=== PATIENT | female | born 1990 | race Caucasian/White ===

== ENCOUNTER 2018-07-26 13:33 | Emergency (ER) | payer OTHER ==
--- NOTE | 2018-07-26 13:49 | EDM.PDOC ---
ED HPI GENERAL MEDICAL PROBLEM - General Chief Complaint: Laceration Stated Complaint: GOT HURT AT WORK AND MY NEED STITCHES Time Seen by Provider: 07/26/18 13:37 - History of Present Illness INITIAL COMMENTS - FREE TEXT/NARRATIVE: HISTORY AND PHYSICAL: History of present illness: The patient is a 27-year-old female who presented to the ER with a 2.0 cm laceration of the dorsum of the right thumb. She reports she was cleaning at work and cut it on a glass cup. She reports it took compression for a while before it stopped bleeding. It is not currently bleeding. She reports normal movement and feeling in all her fingers. Patient is unsure of tetanus status. [] Review of systems: As per history of present illness and below otherwise all systems reviewed and negative. Past medical history: As per history of present illness and as reviewed below otherwise noncontributory. Surgical history: As per history of present illness and as reviewed below otherwise noncontributory. Social history: No reported history of drug or alcohol abuse. Family history: As per history of present illness and as reviewed below otherwise noncontributory. Physical exam: HEENT: Atraumatic, normocephalic, pupils reactive, negative for conjunctival pallor or scleral icterus, mucous membranes moist, throat clear, neck supple, nontender, trachea midline. Lungs: Clear to auscultation, breath sounds equal bilaterally, chest nontender. Heart: S1S2, regular, negative for clicks, rubs, or JVD. Abdomen: Soft, nondistended, nontender. Negative for masses or hepatosplenomegaly. Negative for costovertebral tenderness. Pelvis: Stable nontender. Genitourinary: Deferred. Rectal: Deferred. Extremities: Atraumatic, negative for cords or calf pain. Neurovascular unremarkable. Right thumb- 2 cm dorsal laceration, full ROM, normal sensation, no active bleeding. Neuro: Awake, alert, oriented. Cranial nerves II through XII unremarkable. Cerebellum unremarkable. Motor and sensory unremarkable throughout. Exam nonfocal. Impression: [laceration right dorsum of thumb] Plan: Area was cleaned and draped in sterile fashion. Local anesthetic was used with 3 mL of 1% lidocaine. The patient's laceration was sutured using 4-0 Ethilon sutures. The laceration required 5 sutures. Patient tolerated procedure well. Patient had full motion and was neurovascularly intact pre and post procedure. Minimal blood loss, no complications. Patient also received tetanus vaccination.] Definitive disposition and diagnosis as appropriate pending reevaluation and review of above. abodminal cramping Pain Score (Numeric/FACES): 6 - Related Data Allergies Allergy/AdvReac Type Severity Reaction Status Date / Time No Known Allergies Allergy Verified 07/26/18 13:39 Home Meds: Home Meds . [No Known Home Meds] 07/26/18 [History] Past Medical History - Past Health History Medical/Surgical History: Denies Medical/Surgical History - Past Surgical History Female Surgical History: Reports: Section Social & Family History - Family History Endocrine/Metabolic: Reports: Diabetes, Type I - Tobacco Use Smoking Status *Q: Never Smoker Second Hand Smoke Exposure: No - Caffeine Use Caffeine Use: Reports: None - Recreational Drug Use Recreational Drug Use: No ED ROS GENERAL - Review of Systems Review Of Systems: See Below (See dictation) ED EXAM, SKIN/RASH Exam: See Below (See dictation) Course - Vital Signs Last Recorded V/S: Last Vital Signs Temp 97.1 F 07/26/18 13:36 Pulse 99 07/26/18 13:36 Resp 16 07/26/18 13:36 BP 150/80 H 07/26/18 13:36 Pulse Ox 97 07/26/18 13:36 - Orders/Labs/Meds Meds: Medications Discontinued Medications Generic Name Dose Route Start Last Admin Trade Name Isidroq PRN Reason Stop Dose Admin Lidocaine HCl 5 ml 07/26/18 13:50 Xylocaine-Mpf 1% INJECT 07/26/18 13:51 ONETIME ONE Departure - Departure Time of Disposition: 14:27 Disposition: Home, Self-Care 01 Condition: Good Clinical Impression: Laceration - Discharge Information *PRESCRIPTION DRUG MONITORING PROGRAM REVIEWED*: No *COPY OF PRESCRIPTION DRUG MONITORING REPORT IN PATIENT DORINA: No Instructions: Laceration Care, Adult, [id number], Stitches, [place], or Adhesive Wound Closure, [id number] Referrals: PCP,None [Primary Care Provider] - Forms: ED Department Discharge Additional Instructions: My general discharge The following information is given to patients seen in the emergency department who are being discharged to home. This information is to outline your options for follow-up care. We provide all patients seen in our emergency department with a follow-up referral. The need for follow-up, as well as the timing and circumstances, are variable depending upon the specifics of your emergency department visit. If you don't have a primary care physician on staff, we will provide you with a referral. We always advise you to contact your personal physician following an emergency department visit to inform them of the circumstance of the visit and for follow-up with them and/or the need for any referrals to a consulting specialist. The emergency department will also refer you to a specialist when appropriate. This referral assures that you have the opportunity for follow-up care with a specialist. All of these measure are taken in an effort to provide you with optimal care, which includes your follow-up. Under all circumstances we always encourage you to contact your private physician who remains a resource for coordinating your care. When calling for follow-up care, please make the office aware that this follow-up is from your recent emergency room visit. If for any reason you are refused follow-up, please contact the [facility] Emergency Department at and asked to speak to the emergency department charge nurse. My Primary Care [facility] [address] [place] [id number] Please return in 7-10 days for suture removal. If any signs of infection such as redness around the site, warmth, or drainage from the wound please seek medical attention. Keep area clean and dry.
[2018-07-26] MEDS ORDERED: Diphtheria,Pertussis(Acell),Tetanus Vaccine 0.5 ML Syringe IM ONE (14:35)
== END 2018-07-26 14:45 | disposition home or self-care (01) ==
LOC: MW.ED 13:33
DX: S61.011A Laceration without foreign body of right thumb without damage to nail, initial encounter (principal); Z23 Encounter for immunization; W25.XXXA Contact with sharp glass, initial encounter; Y93.G1 Activity, food preparation and clean up; Y99.0 Civilian activity done for income or pay
CPT/HCPCS: 90471; 90715; 99282-25

== ENCOUNTER 2021-01-13 04:58 | Inpatient (IN) | payer MEDICAID ==
[2021-01-13] MEDS ORDERED: Citric Acid/Sodium Citrate Solution 30 ML Cup PO ONE (05:08)
[2021-01-13] MEDS ORDERED: Sodium Chloride 0.9% 10 ML SDV IV PRN (05:08)
[2021-01-13] MEDS ORDERED: Sodium Chloride 0.9% 10 ML Syringe FLUSH PRN (05:08)
[2021-01-13] MEDS ORDERED: Sodium Chloride 0.9% 2.5 ML Syringe FLUSH PRN (05:08)
[2021-01-13] MEDS ORDERED: ceFAZolin 2 GM in Premix Bag 1 BAG IV ONE (05:08)
[2021-01-13] MEDS ORDERED: Oxytocin/0.9 % Sodium Chloride 30 UNIT/500 ML BAG IV SCH (05:15)
[2021-01-13] MEDS: Lactated Ringers 1,000 ML IV SCH ×2 (05:25→06:23)
[2021-01-13] MEDS ORDERED: fentaNYL 100 MCG/2 ML SDV ONE (07:03)
[2021-01-13] MEDS ORDERED: Ondansetron 4 MG/2 ML SDV ONE (07:04)
[2021-01-13] MEDS ORDERED: Morphine PF 10 MG/10 ML SDV ONE (07:04)
[2021-01-13] MEDS ORDERED: Phenylephrine 1% 10 MG/ML SDV ONE (07:04)
[2021-01-13] MEDS ORDERED: Oxytocin 10 Units/1 ML SDV ONE ×2 (07:04→08:46)
--- NOTE | 2021-01-13 07:19 | PCM.PREANE ---
Preanesthetic Assessment - Anesthesia/Transfusion/Family Hx Anesthesia History: Prior Anesthesia Without Reaction Family History of Anesthesia Reaction: No Transfusion History: No Prior Transfusion(s) - Review of Systems General: No Symptoms Pulmonary: No Symptoms Cardiovascular: No Symptoms Gastrointestinal: No Symptoms Neurological: No Symptoms Other: Reports: None - Physical Assessment NPO Status Date: 01/13/21 NPO Status Time: 04:00 Height: 1.6 m Weight: 112.037 kg ASA Class: 2 Mental Status: Alert & Oriented x3 Airway Class: Mallampati = 2 Dentition: Reports: Broken Tooth/Teeth (center left and right upper) Thyro-Mental Finger Breadths: 3 Mouth Opening Finger Breadths: 3 ROM/Head Extension: Full Lungs: Clear to Auscultation, Normal Respiratory Effort Cardiovascular: Regular Rate, Regular Rhythm - Lab Values: Laboratory Last Values WBC 9.31 K/uL (4.0-11.0) 01/13/21 05:25 RBC 4.24 M/uL (4.30-5.90) L 01/13/21 05:25 Hgb 11.3 g/dL (12.0-16.0) L 01/13/21 05:25 Hct 35.0 % (36.0-46.0) L 01/13/21 05:25 MCV 82.5 fL (80.0-98.0) 01/13/21 05:25 MCH 26.7 pg (27.0-32.0) L 01/13/21 05:25 MCHC 32.3 g/dL (31.0-37.0) 01/13/21 05:25 RDW Std Deviation 43.4 fl (28.0-62.0) 01/13/21 05:25 RDW Coeff of Kadi 15 % (11.0-15.0) 01/13/21 05:25 Plt Count 242 K/uL (150-400) 01/13/21 05:25 MPV 10.60 fL (7.40-12.00) 01/13/21 05:25 Nucleated RBC % 0.0 /100WBC 01/13/21 05:25 Nucleated RBCs # 0 K/uL 01/13/21 05:25 Blood Type A POSITIVE 01/13/21 05:25 Antibody Screen NEGATIVE 01/13/21 05:25 - Allergies Allergies/Adverse Reactions: Allergies Allergy/AdvReac Type Severity Reaction Status Date / Time No Known Allergies Allergy Verified 01/07/21 09:32 - Acknowledgements Anesthesia Type Planned: Spinal (The patient understands and accepts anesthetic risks and benefits of spinal anesthesia including failed spinal requiring conversion to general anesthesia. She understands and accepts the anesthetic risks and benefits of anesthesia. All questions answered. Consent signed. ) Pt an Appropriate Candidate for the Planned Anesthesia: Yes Alternatives and Risks of Anesthesia Discussed w Pt/Guardian: Yes Pt/Guardian Understands and Agrees with Anesthesia Plan: Yes PreAnesthesia Questionnaire - Past Health History Medical/Surgical History: Denies Medical/Surgical History HEENT History: Reports: None Cardiovascular History: Reports: None Respiratory History: Reports: Asthma (used her inhaler last year "December 2019".) Other Respiratory History: rarely uses inhaler Gastrointestinal History: Reports: Other (See Below) Other Gastrointestinal History: occasional heartburn during -none now Genitourinary History: Reports: None 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: Musculoskeletal History: Reports: None Neurological History: Reports: None Psychiatric History: Reports: None Endocrine/Metabolic History: Reports: Obesity/BMI 30+ (BMI 43) Hematologic History: Reports: None - Infectious Disease History Infectious Disease History: Reports: None - Past Surgical History Head Surgeries/Procedures: Reports: None Female Surgical History: Reports: Section (one.) - SUBSTANCE USE Tobacco Use Status *Q: Never Tobacco User Second Hand Smoke Exposure: No Recreational Drug Use History: No - HOME MEDS Home Medications: Home Meds Albuterol [Ventolin HFA] 1 dose IN Q4HR #1 inhaler 09/04/18 [Rx] Pnv No.95/Ferrous Fum/Folic AC [ Vitamin Tablet] 1 tab PO DAILY 01/07/21 [History] - CURRENT (IN HOUSE) MEDS Current Meds: Current Medications Oxytocin/Sodium Chloride (Oxytocin 30 Unit/500 Ml-Ns) 30 unit in 500 mls @ 250 mls/hr IV TITRATE MITCH Lactated Ringer's (Ringers, Lactated) 1,000 mls @ 500 mls/hr IV BOLUS MITCH Last Admin: 01/13/21 06:23 Dose: 999 mls/hr Documented by: Sodium Chloride (Sodium Chloride 0.9% 10 Ml Syringe) 10 ml FLUSH ASDIRECTED PRN PRN Reason: Keep Vein Open Sodium Chloride (Sodium Chloride 0.9% 2.5 Ml Syringe) 2.5 ml FLUSH ASDIRECTED PRN PRN Reason: Keep Vein Open Sodium Chloride (Sodium Chloride 0.9% 10 Ml Sdv) 10 ml IV ASDIRECTED PRN PRN Reason: IV Use Discontinued Medications Citric Acid/Sodium Citrate (Citric Acid/Sodium Citrate Solution 30 Ml Cup) 30 ml PO ONETIME ONE Stop: 01/13/21 05:09 Fentanyl (Fentanyl 100 Mcg/2 Ml Sdv) Confirm Administered Dose 100 mcg .ROUTE .STK-MED ONE Stop: 01/13/21 07:04 Cefazolin Sodium/Dextrose 2 gm (/ Premix) 50 mls @ 100 mls/hr IV ONETIME ONE Stop: 01/13/21 05:37 Morphine Sulfate (Morphine Pf 10 Mg/10 Ml Sdv) Confirm Administered Dose 10 mg .ROUTE .STK-MED ONE Stop: 01/13/21 07:05 Ondansetron HCl (Ondansetron 4 Mg/2 Ml Sdv) Confirm Administered Dose 4 mg .ROUTE .STK-MED ONE Stop: 01/13/21 07:05 Oxytocin (Oxytocin 10 Units/1 Ml Sdv) Confirm Administered Dose 20 unit .ROUTE .STK-MED ONE Stop: 01/13/21 07:05 Phenylephrine HCl (Phenylephrine 1% 10 Mg/Ml Sdv) Confirm Administered Dose 10 mg .ROUTE .STK-MED ONE Stop: 01/13/21 07:05
[2021-01-13] MEDS ORDERED: ceFAZolin 1 GM Vial ONE (07:28)
[2021-01-13] MEDS ORDERED: Sodium Chloride 0.9% 20 ML ONE (07:28)
[2021-01-13] MEDS ORDERED: Nalbuphine 10 MG/1 ML Vial IVPUSH PRN (08:36)
[2021-01-13] MEDS ORDERED: Naloxone 0.4 MG/ML Syringe IVPUSH PRN (08:36)
[2021-01-13] MEDS ORDERED: Acetaminophen/oxyCODONE 325-5 MG Tab PO PRN ×2 (09:00→10:27)
[2021-01-13] MEDS ORDERED: Acetaminophen/HYDROcodone 325-5 MG Tab PO PRN (09:00)
[2021-01-13] MEDS ORDERED: Midazolam 1 MG/ML 2 ML SDV ONE (09:20)
[2021-01-13] MEDS ORDERED: Bisacodyl 10 MG Supp RECTAL PRN (10:27)
[2021-01-13] MEDS ORDERED: Oxytocin 10 Units/1 ML SDV IM PRN (10:27)
[2021-01-13] MEDS ORDERED: diphenhydrAMINE 50 MG/ML SDV IVPUSH PRN (10:27)
[2021-01-13] MEDS ORDERED: Lanolin 100% Cream 7 GM Tube TOP PRN (10:27)
[2021-01-13] MEDS ORDERED: Ondansetron 4 MG/2 ML SDV IVPUSH PRN (10:27)
[2021-01-13] MEDS ORDERED: Methylergonovine 0.2 MG/1 ML Amp IM PRN (10:27)
[2021-01-13] MEDS ORDERED: Misoprostol 200 MCG Tab RECTAL PRN (10:27)
[2021-01-13] MEDS ORDERED: Tranexamic Acid 1,000 MG in Sodium Chloride 0.9% 100 ML IV PRN (10:27)
[2021-01-13] MEDS ORDERED: Oxytocin/Lactated Ringers 30 UNIT/500 ML BAG IV SCH (10:30)
[2021-01-13] MEDS ORDERED: Lactated Ringers 1,000 ML IV SCH (10:30)
[2021-01-13] MEDS: Ketorolac 30 MG/ML SDV IVPUSH SCH ×2 (10:58→16:35)
--- NOTE | 2021-01-13 11:21 | PCM.POSTAN ---
POST ANESTHESIA ASSESSMENT - MENTAL STATUS Mental Status: Alert, Oriented - RESPIRATORY Respiratory Status: Respiratory Rate WNL, Airway Patent, O2 Saturation Stable - CARDIOVASCULAR CV Status: Pulse Rate WNL, Blood Pressure Stable - GASTROINTESTINAL GI Status: No Symptoms - POST OP HYDRATION Hydration Status: Adequate & Stable
--- NOTE | 2021-01-13 14:35 | OR ---
DATE OF PROCEDURE: 01/13/2021 SURGEON: EUGENIO FRANCIS PREOPERATIVE DIAGNOSIS: A 30-year-old, G2, P 1-0-0-1, at 39 weeks and 2 days, for repeat section. POSTOPERATIVE DIAGNOSIS: A 30-year-old, G2, P 1-0-0-1, at 39 weeks and 2 days, for repeat section. PROCEDURE: Repeat UPPER segment section and lysis of extensive adhesions. URINE OUTPUT: 100. ESTIMATED BLOOD LOSS: 1000. IV FLUIDS: 3100. ANESTHESIA: Spinal. COMPLICATIONS: None. NOTES AND FINDINGS: A live male delivered at 9:03 a.m. score is 8 and 9. Weight is 3960 g. Extensive lower segment uterine adhesion with the rectus muscle completely plastered on the lower uterine segment. BRIEF HISTORY ABOUT THE PATIENT: A 30-year-old, G2, P 1-0-0-1, at 39 weeks and 2 days, who was for a repeat section. She had a previous history of , which she said was complicated with a wound infection afterward. She declined a and desired a repeat section. She was explained the risks, benefits, and alternatives, and she desired to proceed. DESCRIPTION OF PROCEDURE: The patient was taken to the operating room where spinal anesthesia was performed without difficulty. She was prepared and draped in the dorsal supine position with a leftward tilt. A Pfannenstiel skin incision was made 1 cm from the previous incision, which was about 3 to 4 cm from the pubic symphysis. The incision was carried down to the fascia with the Bovie. The fascia was incised and extended laterally. The fascia was from the rectus muscles superiorly and inferiorly. The rectus muscle was noted to be adhered to the anterior uterine segment . With gentle dissection and sharp and blunt dissection, the area above the rectus adhered to the segment of the uterus was then freed in a stepwise fashion. 100 mL of sterile milk backed filled into the bladder to help to demarcate the bladder. Then, with some increased visibility of the anterior uterus, an incision was made, which was extended with the bandit scissors/ and the was in cephalic position, was brought to the level of the incision. With fundal pressure, was delivered. The cord was clamped and cut. was handed over to the awaiting nursery nurse. The cord blood gases were obtained. The placenta was delivered without any difficulty. Then, the incision was closed in two layers, first layer with 0 Vicryl, second layer with 0 Monocryl. The areas around the anterior uterine wall were noted to be bleeding and multiple [id number] sutures were placed. The adnexa were then inspected and there was some bleeding close to the round ligament on the left, which was controlled with interrupted [id number] sutures. The incision was then inspected and noted to be about 5 cm from the fundus, hence was called upper uterine transverse incision. Interceed was placed on the uterine incision. The Abdon retractor was removed and the incision was inspected again, it was noted to be hemostatic. The gutters were cleaned. The rectus muscle that was dissected off the uterus was then apposed with [id number] sutures for hemostasis . The fascia was closed in a continuous fashion. Then, the subcutaneous fat was apposed in two layers with plain gut. Skin was closed with 3-0 Monocryl on a Jay needle. The MISBAH dressing was placed on top of the incision. All instrument and pad counts were correct x2. YARI / JOHN /[id number] URSULA
--- NOTE | 2021-01-13 17:18 | PCM.OPNOTE ---
- General Post-Op/Procedure Note Date of Surgery/Procedure: 01/13/21 Operative Procedure(s): Repeat UPPER segment transverse incision Findings: Live male delivered at 903am , 8/9 weight 3960g Extensive adhesion of lower uterine segment to the rectus muscles Interceed placed on uterine incision Pre Op Diagnosis: 30yo @ 39w2d for repeat Post-Op Diagnosis: same Anesthesia Technique: Spinal Primary Surgeon: Art Meza Anesthesia Provider: Shona Mazariegos Fluid Replacement, Intraop: 3,100 Output, Urine Amount: 100 EBL in mLs: 1,000 Complications: None Condition: Good Free Text/Narrative:: Intake & Output 01/13/21 01/13/21 01/13/21 06:59 14:59 22:59 Output Total 100 375 Balance -100 -375
[2021-01-14] MEDS: Ketorolac 30 MG/ML SDV IVPUSH SCH ×3 (07:22→10:30)
[2021-01-14] MEDS: Docusate Sodium 100 MG Cap PO SCH ×3 (07:24→20:58)
--- NOTE | 2021-01-14 07:55 | PCM48HPAN ---
Post Anesthesia Note - EVALUATION WITHIN 48HRS OF ANESTHETIC Vital Signs in Normal Range: Yes Patient Participated in Evaluation: Yes Respiratory Function Stable: Yes Airway Patent: Yes Cardiovascular Function Stable: Yes Hydration Status Stable: Yes Pain Control Satisfactory: Yes Nausea and Vomiting Control Satisfactory: Yes Mental Status Recovered: Yes Vital Signs: Last Vital Signs Temp 36.6 C 01/13/21 16:08 Pulse 90 01/14/21 06:00 Resp 17 01/14/21 06:00 BP 112/58 L 01/13/21 16:08 Pulse Ox 100 01/14/21 06:00 - COMMENTS/OBSERVATIONS Free Text/Narrative:: pt states full sensation in legs bilaterally.
[2021-01-14] MEDS ORDERED: Ibuprofen 800 MG Tab PO PRN (16:30)
[2021-01-14] MEDS: Ferrous Sulfate 325 MG Tab PO SCH (17:34)
[2021-01-14] MEDS: Acetaminophen/oxyCODONE 325-5 MG Tab PO PRN (19:49)
--- NOTE | 2021-01-15 08:56 | PCM.PNPP ---
- General Info Date of Service: 01/15/21 Subjective Update: 30yo P2 s/p Repeat POD2 , she is ambulating , voiding and tolerating regular diet Functional Status: Reports: Pain Controlled, Tolerating Diet, Ambulating, Urinating - Review of Systems General: Reports: No Symptoms HEENT: Reports: No Symptoms Pulmonary: Reports: No Symptoms Cardiovascular: Reports: No Symptoms Gastrointestinal: Reports: No Symptoms Genitourinary: Reports: No Symptoms Musculoskeletal: Reports: No Symptoms - General Info Date of Service: 01/15/21 - Patient Data Vital Signs - Most Recent: Last Vital Signs Temp 37.2 C 01/15/21 08:00 Pulse 74 01/15/21 06:09 Resp 18 01/15/21 08:00 BP 120/62 01/15/21 08:00 Pulse Ox 97 01/15/21 08:00 Weight - Most Recent: 112.037 kg Med Orders - Current: Current Medications Hydrocodone Bitart/Acetaminophen (Acetaminophen/Hydrocodone 325-5 Mg Tab) 2 tab PO Q6H PRN PRN Reason: Pain (moderate 4-6) Bisacodyl (Bisacodyl 10 Mg Supp) 10 mg RECTAL ONETIME PRN PRN Reason: Constipation Diphenhydramine HCl (Diphenhydramine 50 Mg/Ml Sdv) 25 mg IVPUSH Q6H PRN PRN Reason: Itching or Nausea Docusate Sodium (Docusate Sodium 100 Mg Cap) 100 mg PO BID [facility] Last Admin: 01/14/21 20:58 Dose: 100 mg Documented by: Emollient Ointment (Lanolin 100% Cream 7 Gm Tube) 0 gm TOP ASDIRECTED PRN PRN Reason: Sore Nipples Ferrous Sulfate (Ferrous Sulfate 325 Mg Tab) 325 mg PO TIDMEALS [facility] Last Admin: 01/14/21 17:34 Dose: 325 mg Documented by: Oxytocin/Sodium Chloride (Oxytocin 30 Unit/500 Ml-Ns) 30 unit in 500 mls @ 250 mls/hr IV TITRATE [facility] Lactated Ringer's (Ringers, Lactated) 1,000 mls @ 500 mls/hr IV BOLUS [facility] Last Admin: 01/13/21 06:23 Dose: 999 mls/hr Documented by: Lactated Ringer's (Ringers, Lactated) 1,000 mls @ 125 mls/hr IV ASDIRECTED [facility] Last Admin: 01/13/21 15:24 Dose: 125 mls/hr Documented by: Oxytocin/Lactated Ringer's (Pitocin In Lr 30 Units/500 Ml) 30 unit in 500 mls @ 2 mls/hr IV TITRATE MITCH; Protocol Tranexamic Acid 1,000 mg/ (Sodium Chloride) 110 mls @ 660 mls/hr IV ONETIME PRN PRN Reason: Bleeding Ibuprofen (Ibuprofen 800 Mg Tab) 800 mg PO Q8H PRN PRN Reason: mild pain or fever Last Admin: 01/14/21 21:01 Dose: 800 mg Documented by: Methylergonovine Maleate (Methylergonovine 0.2 Mg/1 Ml Amp) 0.2 mg IM ONETIME PRN PRN Reason: Excessive Vaginal Bleeding Misoprostol (Misoprostol 200 Mcg Tab) 1,000 mcg RECTAL ONETIME PRN PRN Reason: excessive bleeding Ondansetron HCl (Ondansetron 4 Mg/2 Ml Sdv) 4 mg IVPUSH Q4H PRN PRN Reason: Nausea/Vomiting Oxycodone/Acetaminophen (Acetaminophen/Oxycodone 325-5 Mg Tab) 1 tab PO ONETIME PRN PRN Reason: Pain (mild 1-3) Oxycodone/Acetaminophen (Acetaminophen/Oxycodone 325-5 Mg Tab) 1 tab PO Q4H PRN PRN Reason: Pain (moderate 4-6) Oxycodone/Acetaminophen (Acetaminophen/Oxycodone 325-5 Mg Tab) 2 tab PO Q4H PRN PRN Reason: Pain (moderate 4-6) Last Admin: 01/14/21 19:49 Dose: 2 tab Documented by: Oxytocin (Oxytocin 10 Units/1 Ml Sdv) 10 unit IM ASDIRECTED PRN PRN Reason: Excessive Vaginal Bleeding Sodium Chloride (Sodium Chloride 0.9% 10 Ml Syringe) 10 ml FLUSH ASDIRECTED PRN PRN Reason: Keep Vein Open Sodium Chloride (Sodium Chloride 0.9% 2.5 Ml Syringe) 2.5 ml FLUSH ASDIRECTED PRN PRN Reason: Keep Vein Open Sodium Chloride (Sodium Chloride 0.9% 10 Ml Sdv) 10 ml IV ASDIRECTED PRN PRN Reason: IV Use Discontinued Medications Cefazolin Sodium (Cefazolin 1 Gm Vial) Confirm Administered Dose 2 gm .ROUTE .[facility]-MED ONE Stop: 01/13/21 07:29 Citric Acid/Sodium Citrate (Citric Acid/Sodium Citrate Solution 30 Ml Cup) 30 ml PO ONETIME ONE Stop: 01/13/21 05:09 Fentanyl (Fentanyl 100 Mcg/2 Ml Sdv) Confirm Administered Dose 100 mcg .ROUTE .STK-MED ONE Stop: 01/13/21 07:04 Cefazolin Sodium/Dextrose 2 gm (/ Premix) 50 mls @ 100 mls/hr IV ONETIME ONE Stop: 01/13/21 05:37 Sodium Chloride (Normal Saline) Confirm Administered Dose 20 mls @ as directed .ROUTE .STK-MED ONE Stop: 01/13/21 07:29 Ketorolac Tromethamine (Ketorolac 30 Mg/Ml Sdv) 30 mg IVPUSH Q6H MITCH Stop: 01/14/21 10:31 Last Admin: 01/14/21 10:30 Dose: 30 mg Documented by: Midazolam HCl (Midazolam 1 Mg/Ml 2 Ml Sdv) Confirm Administered Dose 2 mg .ROUTE .STK-MED ONE Stop: 01/13/21 09:21 Morphine Sulfate (Morphine Pf 10 Mg/10 Ml Sdv) Confirm Administered Dose 10 mg .ROUTE .STK-MED ONE Stop: 01/13/21 07:05 Nalbuphine HCl (Nalbuphine 10 Mg/1 Ml Vial) 2.5 mg IVPUSH Q3H PRN PRN Reason: Pruritis Stop: 01/14/21 08:37 Naloxone HCl (Naloxone 0.4 Mg/Ml Syringe) 0.1 mg IVPUSH ONETIME PRN PRN Reason: Respiratory Depression Stop: 01/14/21 08:37 Ondansetron HCl (Ondansetron 4 Mg/2 Ml Sdv) Confirm Administered Dose 4 mg .ROUTE .STK-MED ONE Stop: 01/13/21 07:05 Oxytocin (Oxytocin 10 Units/1 Ml Sdv) Confirm Administered Dose 20 unit .ROUTE .STK-MED ONE Stop: 01/13/21 07:05 Oxytocin (Oxytocin 10 Units/1 Ml Sdv) Confirm Administered Dose 10 unit .ROUTE .STK-MED ONE Stop: 01/13/21 08:47 Phenylephrine HCl (Phenylephrine 1% 10 Mg/Ml Sdv) Confirm Administered Dose 10 mg .ROUTE .STK-MED ONE Stop: 01/13/21 07:05 - Recovery Exam Fundal Tone: Firm Fundal Level: 1 Fingerbreadths Below Umbilicus Fundal Placement: Midline Lochia Amount: Scant Lochia Color: Rubra/Red Perineum Description: Intact, Minimal Bruising/Swelling Episiotomy/Laceration: None Bladder Status: Voiding Urinary Elimination: Indwelling Catheter - Exam General: Alert HEENT: Pupils Equal Lungs: Clear to Auscultation Cardiovascular: Regular Rate, Regular Rhythm GI/Abdominal Exam: Normal Bowel Sounds Extremities: Normal Inspection Wound/Incisions: Dressing Dry and Intact Neurological: No New Focal Deficit Psy/Mental Status: Alert - Problem List & Annotations (1) delivery delivered SNOMED Code(s): 308484775 Code(s): O82 - ENCOUNTER FOR DELIVERY WITHOUT INDICATION Status: Acute Current Visit: Yes - Problem List Review Problem List Initiated/Reviewed/Updated: Yes - My Orders Last 24 Hours: My Active Orders 01/14/21 16:30 Ibuprofen [Motrin] 800 mg PO Q8H PRN - Assessment Assessment:: 30yo P2 s/p repeat POD 2 transferred to [place] for intestinal obstruction Breastmilk pumping Post -op aneamia - Plan Plan:: care Pain control Discharge home today Iron tid for aneamia Recommend incentive spirometry
[2021-01-15] MEDS: Docusate Sodium 100 MG Cap PO SCH (09:01)
[2021-01-15] MEDS: Acetaminophen/oxyCODONE 325-5 MG Tab PO PRN (09:01)
[2021-01-15] MEDS: Ferrous Sulfate 325 MG Tab PO SCH (09:01)
== END 2021-01-15 10:25 | disposition home or self-care (01) | DRG 788 ==
LOC: MW.OB 04:58 → OBSVTOIN 05:08 → MW.OB 05:08
PROVIDERS: ADMIT Obstetrics & Gynecology; ATTEND Obstetrics & Gynecology
PROC: 10D00Z0 Extraction of Products of Conception, High, Open Approach (ICD-10-PCS; principal; 2021-01-13)
DX: O34.211 Maternal care for low transverse scar from previous cesarean delivery (principal); Z37.0 Single live birth; Z3A.39 39 weeks gestation of pregnancy
CPT/HCPCS: 36415; 59025; 85014; 85018; 85027; 86592; 86850; 86900; 86901; A9270-GY; C1765; J0690; J1885; J2250; J2270; J2370; J2405; J2590; J3010; J7120

== ENCOUNTER 2021-02-07 11:04 | Day surgery (SDC) | payer MEDICAID ==
[2021-02-07] MEDS ORDERED: Sodium Chloride 0.9% 2.5 ML Syringe FLUSH PRN (11:11)
[2021-02-07] MEDS ORDERED: Sodium Chloride 0.9% 10 ML Syringe FLUSH PRN (11:11)
--- NOTE | 2021-02-07 11:14 | EDM.PDOC ---
ED HPI GENERAL MEDICAL PROBLEM - General Chief Complaint: Abdominal Pain Stated Complaint: UNKNOWN Time Seen by Provider: 02/07/21 11:05 Source of Information: Reports: Patient History Limitations: Reports: No Limitations - History of Present Illness INITIAL COMMENTS - FREE TEXT/NARRATIVE: HISTORY AND PHYSICAL: History of present illness: Patient is a 30-year-old female status post on 01/13/2021. She states since her delivery she has not had any postoperative complications, except some occasional constipation. She has been using [id number] stool softeners a nd prune juice which has helped keep her regular. Last night she woke up with right lower quadrant pain which is progressively gotten worse. Last bowel movement was yesterday evening. Describes the pain as sharp and stabbing. She still has her appendix. Patient denies any fever, chills, headache, change in vision, syncope or near syncope. Denies any chest pain, back pain, shortness of breath or cough. Denies any abdominal pain, nausea, vomiting, diarrhea, constipation or dysuria. Has not noted any blood in urine or stool. Patient has been eating and drinking appropriately. Review of systems: As per history of present illness and below otherwise all systems reviewed and negative. Past medical history: As per history of present illness and as reviewed below otherwise noncontributory. Surgical history: As per history of present illness and as reviewed below otherwise noncontributory. Social history: See social history for further information Family history: As per history of present illness and as reviewed below otherwise noncontributory. Physical exam: General: Well developed and well nourished 30 year old female. Alert and orientated x 3. Nontoxic in appearance and in no acute distress. Vital signs are stable and have been reviewed by me. Nursing notes were reviewed. HEENT: Atraumatic, normocephalic, pupils equal and reactive bilaterally, negative for conjunctival pallor or scleral icterus, mucous membranes moist, TMs normal bilaterally, throat clear, neck supple, nontender, trachea midline. No drooling or trismus noted. No meningeal signs. No hot potato voice noted. Lungs: Clear to auscultation bilaterally. No wheezes, rales, or rhonchi. Chest nontender. Normal work of breathing, no accessory muscles used. Heart: S1S2, regular rate and rhythm without overt murmur, gallops, or rubs. No JVD. No peripheral edema Abdomen: Soft, nondistended, RLQ tenderness with rebound tenderness. Normoactive bowel sounds. Negative for masses or costovertebral tenderness. Skin: incision site appears to be healing well, no surrounding erythema or fluctuance. Remaining skin is intact, warm, dry. No lesions or rashes noted. Hematologic: No petechiae or purpra. Mucosa appropriate color and normal nail bed color and refill. Extremities: Atraumatic, moves all extremities per self without difficulty or deficits, negative for cords or calf pain. Neurovascular unremarkable. Neuro: Awake, alert, oriented. Cranial nerves II through XII unremarkable. Cerebellum unremarkable. Motor and sensory unremarkable throughout. Exam nonfocal. Psychiatric: Mood and affect are appropriate. Normal thought process. Answering questions appropriately. Notes: *This patient was seen and evaluated during the 2019 SARS-CoV-2 novel coronavirus pandemic period. Community viral transmission is ongoing at time of this encounter and the emergency department is operating under pandemic response procedures. Patient does have a leukocytosis. Due to her recent surgery and my suspicion for appendicitis I will do a CT of the abdomen and pelvis. Pain is well managed. CT shows an acute uncomplicated appendicitis. No evidence of perforation or abscess. Mildly enlarged uterus compatible with recent state. Small developing postoperative seroma in the lower anterior abdominal wall. I have talked with the patient about today's findings, in addition to providing specific details for plan of care. Dr Saucedo, general surgeon was consulted, he will come and see the patient. He requests Invanz IV while waiting for surgery. Diagnostics: CBC, CMP, UA, Lipase, CT abd/pelvis Therapeutics: IV Morphine, Zofran, IV fluids, Invanz Impression: Appendicitis Plan: To OR with Sheryl Definitive disposition and diagnosis as appropriate pending reevaluation and review of above. Incisional Pain Score (Numeric/FACES): 7 - Related Data Allergies Allergy/AdvReac Type Severity Reaction Status Date / Time No Known Allergies Allergy Verified 01/07/21 09:32 Home Meds: Home Meds Albuterol [Ventolin HFA] 1 dose IN Q4HR #1 inhaler 09/04/18 [Rx] Pnv No.95/Ferrous Fum/Folic AC [ Vitamin Tablet] 1 tab PO DAILY 01/07/21 [History] Acetaminophen/oxyCODONE [Percocet 325-5 MG] 1 tab PO Q4H PRN #20 tablet 01/14/21 [Rx] Ferrous Sulfate 325 mg PO BIDMEALS 30 Days #60 tab 01/14/21 [Rx] Ibuprofen [Motrin] 800 mg PO Q8H PRN #30 tablet 01/14/21 [Rx] Acetaminophen/HYDROcodone [[place] 325-5 MG] 1 - 2 tab PO Q6H PRN #15 tablet 02/07/21 [Rx] Past Medical History - Past Health History Medical/Surgical History: Denies Medical/Surgical History HEENT History: Reports: None Cardiovascular History: Reports: None Respiratory History: Reports: Asthma (used her inhaler last year "December 2019".) Other Respiratory History: rarely uses inhaler Gastrointestinal History: Reports: Other (See Below) Other Gastrointestinal History: occasional heartburn during -none now Genitourinary History: Reports: None 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: Musculoskeletal History: Reports: None Neurological History: Reports: None Psychiatric History: Reports: None Endocrine/Metabolic History: Reports: Obesity/BMI 30+ (BMI 43) Hematologic History: Reports: None - Infectious Disease History Infectious Disease History: Reports: None - Past Surgical History Female Surgical History: Reports: Section (one.) Social & Family History - Family History Family Medical History: No Pertinent Family History Endocrine/Metabolic: Reports: Diabetes, Type I - Caffeine Use Caffeine Use: Reports: None ED ROS GENERAL - Review of Systems Review Of Systems: Comprehensive ROS is negative, except as noted in HPI. ED EXAM, GI/ABD - Physical Exam Exam: See Below (See dictation) Course - Vital Signs Last Recorded V/S: Last Vital Signs Temp 97.2 F 02/07/21 20:00 Pulse 79 02/07/21 22:30 Resp 16 02/07/21 22:30 BP 124/70 02/07/21 22:30 Pulse Ox 98 02/07/21 22:30 - Orders/Labs/Meds Labs: Laboratory Tests 02/07/21 02/07/21 02/07/21 Range/Units 11:30 11:30 12:50 WBC 13.08 H (4.0-11.0) K/uL RBC 4.52 (4.30-5.90) M/uL Hgb 12.1 (12.0-16.0) g/dL Hct 37.9 (36.0-46.0) % MCV 83.8 (80.0-98.0) fL MCH 26.8 L (27.0-32.0) pg MCHC 31.9 (31.0-37.0) g/dL RDW Std Deviation 45.4 (28.0-62.0) fl RDW Coeff of Kadi 15 (11.0-15.0) % Plt Count 343 (150-400) K/uL MPV 9.60 (7.40-12.00) fL Neut % (Auto) 80.4 H (48.0-80.0) % Lymph % (Auto) 12.4 L (16.0-40.0) % [place] % (Auto) 5.6 (0.0-15.0) % Eos % (Auto) 1.5 (0.0-7.0) % Baso % (Auto) 0.1 (0.0-1.5) % Neut # (Auto) 10.5 H (1.4-5.7) K/uL Lymph # (Auto) 1.6 (0.6-2.4) K/uL [place] # (Auto) 0.7 (0.0-0.8) K/uL Eos # (Auto) 0.2 (0.0-0.7) K/uL Baso # (Auto) 0.0 (0.0-0.1) K/uL Nucleated RBC % 0.0 /100WBC Nucleated RBCs # 0 K/uL Sodium 139 (136-145) mmol/L Potassium 4.0 (3.5-5.1) mmol/L Chloride 103 (98-107) mmol/L Carbon Dioxide 25.0 (21.0-32.0) mmol/L BUN 11 (7.0-18.0) mg/dL Creatinine 1.0 (0.6-1.0) mg/dL Est Cr Clr Drug Dosing TNP Estimated GFR (MDRD) > 60.0 ml/min Glucose 97 (74-106) mg/dL Calcium 8.7 (8.5-10.1) mg/dL Total Bilirubin 0.4 (0.2-1.0) mg/dL AST 19 (15-37) IU/L ALT 25 (14-63) IU/L Alkaline Phosphatase 150 H (46-116) U/L Total Protein 8.0 (6.4-8.2) g/dL Albumin 3.5 (3.4-5.0) g/dL Globulin 4.5 H (2.6-4.0) g/dL Albumin/Globulin Ratio 0.8 L (0.9-1.6) Lipase 70 L (73-393) U/L Urine Color YELLOW Urine Appearance HAZY Urine pH 5.5 (5.0-8.0) Ur Specific [place] 1.015 (1.001-1.035) Urine Protein NEGATIVE (NEGATIVE) mg/dL Urine Glucose (UA) NEGATIVE (NEGATIVE) mg/dL Urine Ketones NEGATIVE (NEGATIVE) mg/dL Urine Occult Blood LARGE H (NEGATIVE) Urine Nitrite NEGATIVE (NEGATIVE) Urine Bilirubin NEGATIVE (NEGATIVE) Urine Urobilinogen 0.2 (<2.0) EU/dL Ur Leukocyte Esterase SMALL H (NEGATIVE) Urine RBC 20-30 (0-2/HPF) Urine WBC 0-3 (0-5/HPF) Ur Epithelial Cells FEW (NONE-FEW) Urine Bacteria 1+ H (NEGATIVE) Urine HCG, Qual (NEGATIVE) SARS-CoV-2 RNA ([place]) (NEGATIVE) 02/07/21 02/07/21 Range/Units 12:50 13:04 WBC (4.0-11.0) K/uL RBC (4.30-5.90) M/uL Hgb (12.0-16.0) g/dL Hct (36.0-46.0) % MCV (80.0-98.0) fL MCH (27.0-32.0) pg MCHC (31.0-37.0) g/dL RDW Std Deviation (28.0-62.0) fl RDW Coeff of Kadi (11.0-15.0) % Plt Count (150-400) K/uL MPV (7.40-12.00) fL Neut % (Auto) (48.0-80.0) % Lymph % (Auto) (16.0-40.0) % [place] % (Auto) (0.0-15.0) % Eos % (Auto) (0.0-7.0) % Baso % (Auto) (0.0-1.5) % Neut # (Auto) (1.4-5.7) K/uL Lymph # (Auto) (0.6-2.4) K/uL [place] # (Auto) (0.0-0.8) K/uL Eos # (Auto) (0.0-0.7) K/uL Baso # (Auto) (0.0-0.1) K/uL Nucleated RBC % /100WBC Nucleated RBCs # K/uL Sodium (136-145) mmol/L Potassium (3.5-5.1) mmol/L Chloride (98-107) mmol/L Carbon Dioxide (21.0-32.0) mmol/L BUN (7.0-18.0) mg/dL Creatinine (0.6-1.0) mg/dL Est Cr Clr Drug Dosing Estimated GFR (MDRD) ml/min Glucose (74-106) mg/dL Calcium (8.5-10.1) mg/dL Total Bilirubin (0.2-1.0) mg/dL AST (15-37) IU/L ALT (14-63) IU/L Alkaline Phosphatase (46-116) U/L Total Protein (6.4-8.2) g/dL Albumin (3.4-5.0) g/dL Globulin (2.6-4.0) g/dL Albumin/Globulin Ratio (0.9-1.6) Lipase (73-393) U/L Urine Color Urine Appearance Urine pH (5.0-8.0) Ur Specific [place] (1.001-1.035) Urine Protein (NEGATIVE) mg/dL Urine Glucose (UA) (NEGATIVE) mg/dL Urine Ketones (NEGATIVE) mg/dL Urine Occult Blood (NEGATIVE) Urine Nitrite (NEGATIVE) Urine Bilirubin (NEGATIVE) Urine Urobilinogen (<2.0) EU/dL Ur Leukocyte Esterase (NEGATIVE) Urine RBC (0-2/HPF) Urine WBC (0-5/HPF) Ur Epithelial Cells (NONE-FEW) Urine Bacteria (NEGATIVE) Urine HCG, Qual NEGATIVE (NEGATIVE) SARS-CoV-2 RNA ([place]) NEGATIVE (NEGATIVE) Meds: Medications Discontinued Medications Generic Name Dose Route Start Last Admin Trade Name Freq PRN Reason Stop Dose Admin Hydrocodone Bitart/Acetaminophen 2 tab 02/07/21 17:35 Acetaminophen/Hydrocodone 325-5 Mg Tab PO Q4H PRN Pain (moderate 4-6) Bupivacaine HCl Confirm 02/07/21 15:46 Bupivacaine 0.5% 30 Ml Sdv Administered 02/07/21 15:47 Dose 30 ml .ROUTE .STK-MED ONE Famotidine Confirm 02/07/21 15:54 Famotidine 20 Mg/2 Ml Sdv Administered 02/07/21 15:55 Dose 20 mg .ROUTE .STK-MED ONE Fentanyl Confirm 02/07/21 15:50 Fentanyl 250 Mcg/5 Ml Sdv Administered 02/07/21 15:51 Dose 250 mcg .ROUTE .STK-MED ONE Fentanyl 50 mcg 02/07/21 16:42 Fentanyl 100 Mcg/2 Ml Sdv IVPUSH Q5M PRN Pain Fentanyl Confirm 02/07/21 16:49 Fentanyl 250 Mcg/5 Ml Sdv Administered 02/07/21 16:50 Dose 250 mcg .ROUTE .STK-MED ONE Hydromorphone HCl 0.5 mg 02/07/21 17:35 Hydromorphone 2 Mg/Ml Syringe IVPUSH Q1H PRN Pain (severe 7-10) Sodium Chloride 1,000 mls @ 999 mls/hr 02/07/21 11:32 02/07/21 12:04 Normal Saline IV 02/07/21 12:32 999 mls/hr STAT ONE Administration Ertapenem 1 gm/ Sodium 50 mls @ 100 mls/hr 02/07/21 13:45 02/07/21 13:48 Chloride IV 02/07/21 14:14 100 mls/hr ONETIME ONE Administration Acetaminophen 1,000 mg/ Premix 100 mls @ 400 mls/hr 02/07/21 16:42 02/07/21 20:49 IV 400 mls/hr Q6H PRN Administration Pain Lactated Ringer's 1,000 mls @ 125 mls/hr 02/07/21 17:45 Ringers, Lactated IV ASDIRECTED MITCH Iopamidol 100 ml 02/07/21 12:38 02/07/21 12:38 Iopamidol 755 Mg/Ml 500 Ml Multipack Bottle IVPUSH 02/07/21 12:39 100 ml ONETIME ONE Administration Metoclopramide HCl Confirm 02/07/21 15:55 Metoclopramide 10 Mg/2 Ml Sdv Administered 02/07/21 15:56 Dose 10 mg .ROUTE .STK-MED ONE Midazolam HCl Confirm 02/07/21 15:50 Midazolam 1 Mg/Ml 2 Ml Sdv Administered 02/07/21 15:51 Dose 2 mg .ROUTE .STK-MED ONE Morphine Sulfate 4 mg 02/07/21 11:27 02/07/21 12:06 Morphine 4 Mg/Ml Syringe IVPUSH 02/07/21 11:28 4 mg ONETIME ONE Administration Octyl Cyanoacrylate Confirm 02/07/21 15:46 Octyl 2-Cyanoacrylate 1 Tube Administered 02/07/21 15:47 Dose 1 applic .ROUTE .STK-MED ONE Ondansetron HCl 4 mg 02/07/21 11:27 02/07/21 12:05 Ondansetron 4 Mg/2 Ml Sdv IVPUSH 02/07/21 11:28 4 mg ONETIME ONE Administration Ondansetron HCl 4 mg 02/07/21 17:35 Ondansetron 4 Mg/2 Ml Sdv IVPUSH Q6H PRN Nausea/Vomiting Propofol Confirm 02/07/21 15:50 Propofol 200 Mg/20 Ml Sdv Administered 02/07/21 15:51 Dose 200 mg .ROUTE .STK-MED ONE Sodium Chloride 10 ml 02/07/21 11:11 02/07/21 12:07 Sodium Chloride 0.9% 10 Ml Syringe FLUSH 10 ml ASDIRECTED PRN Administration Keep Vein Open Sodium Chloride 2.5 ml 02/07/21 11:11 02/07/21 12:07 Sodium Chloride 0.9% 2.5 Ml Syringe FLUSH 2.5 ml ASDIRECTED PRN Administration Keep Vein Open Sugammadex Sodium Confirm 02/07/21 15:53 Sugammadex Sodium 200 Mg/2 Ml Vial Administered 02/07/21 15:54 Dose 200 mg .ROUTE .STK-MED ONE Departure - Departure Time of Disposition: 10:27 Disposition: Still A Patient 30 Clinical Impression: Appendicitis - Discharge Information
[2021-02-07] MEDS ORDERED: Morphine 4 MG/ML Syringe IVPUSH ONE (11:27)
[2021-02-07] MEDS ORDERED: Ondansetron 4 MG/2 ML SDV IVPUSH ONE (11:27)
[2021-02-07] MEDS ORDERED: Sodium Chloride 0.9% 1,000 ML IV ONE (11:32)
[2021-02-07 12:10] LABS: BLOOD UREA NITROGEN,BUN 11 mg/dL (7.0-18.0); CHLORIDE,CL 103 mmol/L (98-107); GLUCOSE RANDOM 97 mg/dL (74-106); LIPASE 70 U/L (73-393); SODIUM,NA 139 mmol/L (136-145)
[2021-02-07] MEDS ORDERED: Iopamidol 755 MG/ML 500 ML Multipack Bottle IVPUSH ONE (12:38)
--- NOTE | 2021-02-07 12:57 | CT ---
INDICATION: Right lower quadrant pain since this a.m. History of 3 weeks ago. TECHNIQUE: CT of the abdomen and pelvis with 100 cc Isovue 370 IV contrast. Coronal and sagittal reconstructions. COMPARISON: None. FINDINGS: The liver, gallbladder, spleen, pancreas, and adrenal glands are negative. Hepatic and portal veins are patent. Symmetric enhancement of the kidneys. No hydronephrosis. No obstructing urinary calculi. The bladder is normal in appearance. Mildly enlarged uterus related to recent state. Caesarean section defect in the uterus anteriorly. No abnormality of the ovaries. The appendix is dilated and fluid-filled with mild wall thickening and mucosal hyperenhancement, measuring up to 11 mm in diameter (series 201, image 102 and series 203, image 65). There is mild surrounding inflammatory fat stranding. Findings are compatible with acute appendicitis. No fluid collection to suggest abscess. No intraperitoneal free air or fluid. The colon is normal in appearance. No small bowel dilation. Small amount of subcutaneous fluid and fat stranding in the lower anterior abdominal wall related to recent surgery. There is a thin rim around the fluid likely representing a developing postoperative seroma. No internal gas locules. Multiple small right lower quadrant mesenteric lymph nodes are likely reactive. No lymphadenopathy by size criteria. The bones are unremarkable. The lung bases are clear. IMPRESSION: 1. Acute uncomplicated appendicitis. No evidence of perforation or abscess. 2. Mildly enlarged uterus compatible with recent state. 3. Small developing postoperative seroma in the lower anterior abdominal wall. Please note that all CT scans at this facility use dose modulation, iterative reconstruction, and/or weight-based dosing when appropriate to reduce radiation dose to as low as reasonably achievable. Dictated by Karoline López MD @ Feb 07 2021 12:44PM Signed by Dr. Karoline López @ Feb 07 2021 12:56PM
[2021-02-07] MEDS ORDERED: Ertapenem 1 GM in Sodium Chloride 0.9% 50 ML IV ONE ×2 (12:59→13:45)
[2021-02-07] MEDS ORDERED: Octyl 2-Cyanoacrylate 1 Tube ONE (15:46)
[2021-02-07] MEDS ORDERED: Bupivacaine 0.5% 30 ML SDV ONE (15:46)
[2021-02-07] MEDS ORDERED: fentaNYL 250 MCG/5 ML SDV ONE ×2 (15:50→16:49)
[2021-02-07] MEDS ORDERED: Midazolam 1 MG/ML 2 ML SDV ONE (15:50)
[2021-02-07] MEDS ORDERED: Propofol 200 MG/20 ML SDV ONE (15:50)
--- NOTE | 2021-02-07 15:50 | PCM.PREANE ---
Preanesthetic Assessment - Anesthesia/Transfusion/Family Hx Anesthesia History: Prior Anesthesia Without Reaction Family History of Anesthesia Reaction: No Transfusion History: No Prior Transfusion(s) - Review of Systems General: No Symptoms Pulmonary: No Symptoms Cardiovascular: No Symptoms Gastrointestinal: No Symptoms Neurological: No Symptoms Other: Reports: None - Physical Assessment NPO Status Date: 02/07/21 NPO Status Time: 00:05 Vital Signs: Last Vital Signs Temp 97.4 F 02/07/21 11:10 Pulse 86 02/07/21 13:45 Resp 15 02/07/21 13:45 BP 126/77 02/07/21 13:45 Pulse Ox 98 02/07/21 13:45 Height: 5 ft 3 in Weight: 240 lb ASA Class: 2E Mental Status: Alert & Oriented x3 Airway Class: Mallampati = 2 Dentition: Reports: Normal Dentition ROM/Head Extension: Limited/Partial Lungs: Clear to Auscultation, Normal Respiratory Effort Cardiovascular: Regular Rate, Regular Rhythm - Lab Values: Laboratory Last Values WBC 13.08 K/uL (4.0-11.0) H 02/07/21 11:30 RBC 4.52 M/uL (4.30-5.90) 02/07/21 11:30 Hgb 12.1 g/dL (12.0-16.0) 02/07/21 11:30 Hct 37.9 % (36.0-46.0) 02/07/21 11:30 MCV 83.8 fL (80.0-98.0) 02/07/21 11:30 MCH 26.8 pg (27.0-32.0) L 02/07/21 11:30 MCHC 31.9 g/dL (31.0-37.0) 02/07/21 11:30 RDW Std Deviation 45.4 fl (28.0-62.0) 02/07/21 11:30 RDW Coeff of Kadi 15 % (11.0-15.0) 02/07/21 11:30 Plt Count 343 K/uL (150-400) 02/07/21 11:30 MPV 9.60 fL (7.40-12.00) 02/07/21 11:30 Neut % (Auto) 80.4 % (48.0-80.0) H 02/07/21 11:30 Lymph % (Auto) 12.4 % (16.0-40.0) L 02/07/21 11:30 [place] % (Auto) 5.6 % (0.0-15.0) 02/07/21 11:30 Eos % (Auto) 1.5 % (0.0-7.0) 02/07/21 11:30 Baso % (Auto) 0.1 % (0.0-1.5) 02/07/21 11:30 Neut # (Auto) 10.5 K/uL (1.4-5.7) H 02/07/21 11:30 Lymph # (Auto) 1.6 K/uL (0.6-2.4) 02/07/21 11:30 [place] # (Auto) 0.7 K/uL (0.0-0.8) 02/07/21 11:30 Eos # (Auto) 0.2 K/uL (0.0-0.7) 02/07/21 11:30 Baso # (Auto) 0.0 K/uL (0.0-0.1) 02/07/21 11:30 Nucleated RBC % 0.0 /100WBC 02/07/21 11:30 Nucleated RBCs # 0 K/uL 02/07/21 11:30 Sodium 139 mmol/L (136-145) 02/07/21 11:30 Potassium 4.0 mmol/L (3.5-5.1) 02/07/21 11:30 Chloride 103 mmol/L (98-107) 02/07/21 11:30 Carbon Dioxide 25.0 mmol/L (21.0-32.0) 02/07/21 11:30 BUN 11 mg/dL (7.0-18.0) 02/07/21 11:30 Creatinine 1.0 mg/dL (0.6-1.0) 02/07/21 11:30 Est Cr Clr Drug Dosing TNP 02/07/21 11:30 Estimated GFR (MDRD) > 60.0 ml/min 02/07/21 11:30 Glucose 97 mg/dL (74-106) 02/07/21 11:30 Calcium 8.7 mg/dL (8.5-10.1) 02/07/21 11:30 Total Bilirubin 0.4 mg/dL (0.2-1.0) 02/07/21 11:30 AST 19 IU/L (15-37) 02/07/21 11:30 ALT 25 IU/L (14-63) 02/07/21 11:30 Alkaline Phosphatase 150 U/L (46-116) H 02/07/21 11:30 Total Protein 8.0 g/dL (6.4-8.2) 02/07/21 11:30 Albumin 3.5 g/dL (3.4-5.0) 02/07/21 11:30 Globulin 4.5 g/dL (2.6-4.0) H 02/07/21 11:30 Albumin/Globulin Ratio 0.8 (0.9-1.6) L 02/07/21 11:30 Lipase 70 U/L (73-393) L 02/07/21 11:30 Urine Color YELLOW 02/07/21 12:50 Urine Appearance HAZY 02/07/21 12:50 Urine pH 5.5 (5.0-8.0) 02/07/21 12:50 Ur Specific [place] 1.015 (1.001-1.035) 02/07/21 12:50 Urine Protein NEGATIVE mg/dL (NEGATIVE) 02/07/21 12:50 Urine Glucose (UA) NEGATIVE mg/dL (NEGATIVE) 02/07/21 12:50 Urine Ketones NEGATIVE mg/dL (NEGATIVE) 02/07/21 12:50 Urine Occult Blood LARGE (NEGATIVE) H 02/07/21 12:50 Urine Nitrite NEGATIVE (NEGATIVE) 02/07/21 12:50 Urine Bilirubin NEGATIVE (NEGATIVE) 02/07/21 12:50 Urine Urobilinogen 0.2 EU/dL (<2.0) 02/07/21 12:50 Ur Leukocyte Esterase SMALL (NEGATIVE) H 02/07/21 12:50 Urine RBC 20-30 (0-2/HPF) 02/07/21 12:50 Urine WBC 0-3 (0-5/HPF) 02/07/21 12:50 Ur Epithelial Cells FEW (NONE-FEW) 02/07/21 12:50 Urine Bacteria 1+ (NEGATIVE) H 02/07/21 12:50 SARS-CoV-2 RNA ([place]) NEGATIVE (NEGATIVE) 02/07/21 13:04 - Allergies Allergies/Adverse Reactions: Allergies Allergy/AdvReac Type Severity Reaction Status Date / Time No Known Allergies Allergy Verified 01/07/21 09:32 - Anesthesia Plan Pre-Op Medication Ordered: None - Acknowledgements Anesthesia Type Planned: General Anesthesia Pt an Appropriate Candidate for the Planned Anesthesia: Yes Alternatives and Risks of Anesthesia Discussed w Pt/Guardian: Yes Pt/Guardian Understands and Agrees with Anesthesia Plan: Yes Additional Comments: npo of food after mn some water this morning 0900 nothing else since S/P C/S schedued 3 weeks ago currently breast feeding not on any narcotics now asthma prn inhalers depression tob none etoh none occ thc no cv problems par no questions PreAnesthesia Questionnaire - Past Health History Medical/Surgical History: Denies Medical/Surgical History HEENT History: Reports: None Cardiovascular History: Reports: None Respiratory History: Reports: Asthma Other Respiratory History: rarely uses inhaler Gastrointestinal History: Reports: Other (See Below) Other Gastrointestinal History: abdominal pain to RLQ Genitourinary History: Reports: None 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 Musculoskeletal History: Reports: None Neurological History: Reports: None Psychiatric History: Reports: None Endocrine/Metabolic History: Reports: Obesity/BMI 30+ Hematologic History: Reports: None - Infectious Disease History Infectious Disease History: Reports: None - Past Surgical History Head Surgeries/Procedures: Reports: None GI Surgical History: Reports: None Female Surgical History: Reports: Section - SUBSTANCE USE Tobacco Use Within Last Twelve Months: No Recreational Drug Use History: No - HOME MEDS Home Medications: Home Meds Albuterol [Ventolin HFA] 1 dose IN Q4HR #1 inhaler 09/04/18 [Rx] Pnv No.95/Ferrous Fum/Folic AC [ Vitamin Tablet] 1 tab PO DAILY 01/07/21 [History] Acetaminophen/oxyCODONE [Percocet 325-5 MG] 1 tab PO Q4H PRN #20 tablet 01/14/21 [Rx] Ferrous Sulfate 325 mg PO BIDMEALS 30 Days #60 tab 01/14/21 [Rx] Ibuprofen [Motrin] 800 mg PO Q8H PRN #30 tablet 01/14/21 [Rx] - CURRENT (IN HOUSE) MEDS Current Meds: Current Medications Sodium Chloride (Sodium Chloride 0.9% 10 Ml Syringe) 10 ml FLUSH ASDIRECTED PRN PRN Reason: Keep Vein Open Last Admin: 02/07/21 12:07 Dose: 10 ml Documented by: Sodium Chloride (Sodium Chloride 0.9% 2.5 Ml Syringe) 2.5 ml FLUSH ASDIRECTED PRN PRN Reason: Keep Vein Open Last Admin: 02/07/21 12:07 Dose: 2.5 ml Documented by: Discontinued Medications Sodium Chloride (Normal Saline) 1,000 mls @ 999 mls/hr IV STAT ONE Stop: 02/07/21 12:32 Last Admin: 02/07/21 12:04 Dose: 999 mls/hr Documented by: Ertapenem 1 gm/ Sodium (Chloride) 50 mls @ 100 mls/hr IV ONETIME ONE Stop: 02/07/21 14:14 Last Admin: 02/07/21 13:48 Dose: 100 mls/hr Documented by: Iopamidol (Iopamidol 755 Mg/Ml 500 Ml Multipack Bottle) 100 ml IVPUSH ONETIME ONE Stop: 02/07/21 12:39 Last Admin: 02/07/21 12:38 Dose: 100 ml Documented by: Morphine Sulfate (Morphine 4 Mg/Ml Syringe) 4 mg IVPUSH ONETIME ONE Stop: 02/07/21 11:28 Last Admin: 02/07/21 12:06 Dose: 4 mg Documented by: Ondansetron HCl (Ondansetron 4 Mg/2 Ml Sdv) 4 mg IVPUSH ONETIME ONE Stop: 02/07/21 11:28 Last Admin: 02/07/21 12:05 Dose: 4 mg Documented by:
[2021-02-07] MEDS ORDERED: Sugammadex Sodium 200 MG/2 ML VIAL ONE (15:53)
[2021-02-07] MEDS ORDERED: Famotidine 20 MG/2 ML SDV ONE (15:54)
[2021-02-07] MEDS ORDERED: Metoclopramide 10 MG/2 ML SDV ONE (15:55)
[2021-02-07] MEDS ORDERED: Acetaminophen 1,000 MG in Premix Bag 1 BAG IV PRN (16:42)
[2021-02-07] MEDS ORDERED: fentaNYL 100 MCG/2 ML SDV IVPUSH PRN (16:42)
--- NOTE | 2021-02-07 17:30 | PCM.OPNOTE ---
- General Post-Op/Procedure Note Date of Surgery/Procedure: 02/07/21 Operative Procedure(s): Laparoscopic appendectomy Findings: enlarge, indurated appendix Dictation number [id number] Pre Op Diagnosis: Acute appendicitis Post-Op Diagnosis: acute appendicitis Anesthesia Technique: General ET Tube Primary Surgeon: Rigo Saucedo Pathology: appendix EBL in mLs: 5 Complications: None Condition: Good Free Text/Narrative:: Intake & Output 02/07/21 02/07/21 02/07/21 06:59 14:59 22:59 Output Total 50 Balance -50
[2021-02-07] MEDS ORDERED: HYDROmorphone 2 MG/ML Syringe IVPUSH PRN (17:35)
[2021-02-07] MEDS ORDERED: Acetaminophen/HYDROcodone 325-5 MG Tab PO PRN (17:35)
[2021-02-07] MEDS ORDERED: Ondansetron 4 MG/2 ML SDV IVPUSH PRN (17:35)
[2021-02-07] MEDS ORDERED: Lactated Ringers 1,000 ML IV SCH (17:45)
--- NOTE | 2021-02-07 18:25 | CONS ---
DATE OF CONSULTATION: 02/07/2021 DATE OF : 1990 PRIMARY CARE PHYSICIAN: Lyndsey Nobles M.D. HISTORY OF PRESENT ILLNESS: The patient is a pleasant 30-year-old female. She says that she started having some abdominal pain around 3 a.m. this morning. It was sharp, it was more right upper, flank pain, but she said it kind of moved down to right lower abdomen and she has been getting worse and worse all day. She denies any fevers or chills. She says she has had some nausea. Denies any changes to her bowel habits. Of note, the patient is about 3 weeks status post on 01/13/2021. She says since the , everything had been going well until early this morning. PAST MEDICAL HISTORY: The patient denies any. MEDICATIONS: Current home medications: 1. The patient says she is taking some vitamins. 2. Iron. 3. Placenta pills. SOCIAL HISTORY: The patient denies any tobacco use. Denies illicit drug use. Denies any smoking. PAST SURGICAL HISTORY: This is the patient's second . FAMILY HISTORY: The patient denies any family history of cancer, diabetes, or heart disease. PHYSICAL EXAMINATION: GENERAL: The patient is lying in her ER bed. She was alert and oriented, no acute distress. VITAL SIGNS: Temperature is 97.4, pulse is 86, blood pressure is 126/77, saturating 90% on room air. HEENT: Head is normocephalic, atraumatic. LUNGS: Clear to auscultation bilaterally. No rhonchi or wheezing heard. HEART: Regular rhythm. No murmur appreciated. ABDOMEN: Soft and nondistended. She does have some tenderness in the right lower quadrant at McBurney's point. Some slight guarding. No rebound tenderness. She has a well-healed lower incision. EXTREMITIES: No edema. NEUROLOGIC: Grossly, no motor or neurologic deficit noted. LABORATORY DATA: White cell count is 15.08, hemoglobin is 12.1, platelet count is 343. Sodium 139, potassium 4, chloride is 103, BUN is 11, creatinine is 1.0, glucose is 97, total bilirubin 0.4, AST 19, ALT is 25, alkaline phosphatase is 150, lipase is 70. The urine was hazy, did have occult blood and some leuko esterase along with some bacteria. COVID was negative. IMAGING: Did look at the report and images myself. The patient does have a dilated appendix with some wall thickening. She also does have some subcutaneous likely seroma from her previous . ASSESSMENT AND PLAN: This is a pleasant 30-year-old female with most likely acute appendicitis. We went over with the patient what appendix was. We went over laparoscopic appendectomy. We went over the risks, goals, alternatives of surgery. Risks include, but not limited to bleeding, infection, abscess formation, injury to nearby structures such as small bowel, ureter, hernia formation, abscess formation, and that this could be something other than appendicitis. The patient understands. I did go over with the patient that the pain will be fine. She might spend the evening in the hospital versus discharged later this evening. Also went over with the patient she needs to take it easy after the surgery and no heavy lifting or strenuous activity for 2 weeks. All the patient's questions were answered and she wishes to proceed with the procedure. ROSHAN / JOHN /[id number]
--- NOTE | 2021-02-07 22:36 | PCM.POSTAN ---
POST ANESTHESIA ASSESSMENT - MENTAL STATUS Mental Status: Alert - VITAL SIGNS Vital Signs: Last Vital Signs Temp 36.7 C 02/07/21 18:30 Pulse 81 02/07/21 19:00 Resp 16 02/07/21 19:00 BP 122/69 02/07/21 19:00 Pulse Ox 96 02/07/21 19:00 - RESPIRATORY Respiratory Status: Respiratory Rate WNL - CARDIOVASCULAR CV Status: Pulse Rate WNL - GASTROINTESTINAL GI Status: No Symptoms - POST OP HYDRATION Hydration Status: Adequate & Stable
--- NOTE | 2021-02-07 22:56 | PCM48HPAN ---
Post Anesthesia Note - EVALUATION WITHIN 48HRS OF ANESTHETIC Vital Signs in Normal Range: Yes Patient Participated in Evaluation: Yes Respiratory Function Stable: Yes Airway Patent: Yes Cardiovascular Function Stable: Yes Hydration Status Stable: Yes Pain Control Satisfactory: Yes Nausea and Vomiting Control Satisfactory: Yes Mental Status Recovered: Yes Vital Signs: Last Vital Signs Temp 36.7 C 02/07/21 18:30 Pulse 81 02/07/21 19:00 Resp 16 02/07/21 19:00 BP 122/69 02/07/21 19:00 Pulse Ox 96 02/07/21 19:00
--- NOTE | 2021-02-07 23:18 | OR ---
SURGEON: OLLIE POWELL MD DATE OF PROCEDURE: 02/07/2021 PREOPERATIVE DIAGNOSIS: Acute appendicitis. POSTOPERATIVE DIAGNOSIS: Acute appendicitis. PROCEDURE PERFORMED: Laparoscopic appendectomy. FINDING: Enlarged slightly indurated appendix, also some lower abdominal adhesions from a recent . SPECIMENS: Appendix. ESTIMATED BLOOD LOSS: 5 mL. PRIMARY SURGEON: Ollie Powell MD ANESTHESIA: General. COMPLICATIONS: None. REASON FOR PROCEDURE: The patient is a pleasant 30-year-old female, who started having abdominal pain this morning. It was in the right lower quadrant. She had a CT scan which showed likely acute appendicitis along with a slightly elevated white cell count. I did go over with the patient risks, goals, and alternatives of the procedure. Risks include, but are not limited to, bleeding, infection, abscess formation, failure of staple line, need to convert to open, hernia formation, injury to underlying structures, and this could be something other than appendicitis. The patient understands, wishes to proceed. The patient was brought back to the OR. She was prepped and draped in the usual sterile fashion. SCDs were placed. A Loera catheter was placed. The patient already had IV antibiotics from the ER. A time-out was performed. An infraumbilical incision was made. This was made down to the fascia. The umbilical stalk was grasped and gently elevated, and a Veress needle was placed. It was then withdrawn, and no succus or blood. Had a positive drop test. Insufflation was begun. Pneumoperitoneum was established. Now, a 5 mm trocar was placed under visualization with a 5 mm camera. The abdomen was inspected. The patient did have some lower adhesions from recent surgery. No juan manuel purulence in the abdomen now. A 12 mm trocar was placed in the right lower abdomen. A 5 mm trocar was placed in the right upper abdomen under direct visualization. The patient was placed in a head-down position and air-planed towards myself. The appendix was identified. It was somewhat long. It was a little bit dilated and indurated. A window was made at the base of the appendix. Then the mesoappendix was transected with a Harmonic Scalpel. There was good hemostasis. Now, the blue load linear stapler was placed across the base of the appendix at its junction with the cecum. The staple was fired, and the appendix was removed in an Endo Catch bag. Operative area was again inspected. Staple line appeared intact with good hemostasis along with good hemostasis of the mesoappendix. Some light suction irrigation was done. Now, the abdomen was inspected again. Again, no other abnormalities were seen other than inflammatory changes in the in the pelvis likely secondary to the recent C- section. The 12 mm trocar was removed and was closed laparoscopically with 0 Vicryl. Now, the pneumoperitoneum was released, and the 5 mm trocars were removed. All the trocar sites were injected with rest of the local and closed with 4-0 Monocryl and Dermabond. The patient was transferred to recovery room in stable condition. ROSHAN LOPEZ /[id number]
--- NOTE | 2021-02-08 03:08 | PN ---
SUBJECTIVE: The patient is sitting comfortably in her hospital bed. She is alert and oriented. She is in no acute distress. The patient has been up and walking. She has urinated. She has also had a sandwich for supper. No nausea or vomiting. The patient says she is feeling much better after her laparoscopic appendectomy. She would like to leave. OBJECTIVE: ABDOMEN: Soft and just a minimal tenderness mainly incisional. Incisions all well healed with Dermabond in place. No signs of infection. VITAL SIGNS: Temperature 98.1, pulse is 81, blood pressure is 122/69, saturating 96% on room air. ASSESSMENT AND PLAN: This is a pleasant 30-year-old female. She is status post laparoscopic appendectomy earlier today. This was not perforated and appeared to be an early appendicitis. The patient has been ambulating, tolerating diet, and has been urinating. The pain has been well controlled. I did offer the patient she could go home early in the morning, however, she is anxious to go home. The patient does say that she has someone at home that will take care of her. I went over her medications until the morning pharmacy. The patient says that she did very little medicines and is okay with that. DISCHARGE INSTRUCTIONS: The patient is to take it easy and relax. No heavy lifting or strenuous activity. The patient should not drive. The patient to keep her wound clean and dry. She may shower tomorrow. She has any nausea, vomiting, abdominal pain, or has any questions she should come back or give us a call. The patient will have a followup visit in 2 weeks for postop. The patient's questions were answered. I did talk to the nurse. ROSHAN LOPEZ /[id number]
== END 2021-02-07 23:15 | disposition home or self-care (01) ==
LOC: MW.ED 11:04 → MW.SDS 14:22 → MW.MS 17:36 → MW.SDS 23:15
PROVIDERS: ATTEND Surgery
DX: K35.80 Unspecified acute appendicitis (principal); Z01.812 Encounter for preprocedural laboratory examination; Z20.822 Contact with and (suspected) exposure to COVID-19; K66.0 Peritoneal adhesions (postprocedural) (postinfection); E66.9 Obesity, unspecified; J45.909 Unspecified asthma, uncomplicated; Z79.899 Other long term (current) drug therapy; Z68.41 Body mass index [BMI] 40.0-44.9, adult
CPT/HCPCS: 36415; 44970; 74177; 80053; 81001; 81025; 83690; 85025; 87086; 87635; 88304; 96361; 96365; 96375; 99285; A9270; J0131; J1335; J2250; J2270; J2405; J2704; J2765; J3010; J3490; J7030; Q9967; 00840; 99284; U0002

== ENCOUNTER 2021-05-12 11:36 | Emergency (ER) | payer MEDICAID ==
[2021-05-12] MEDS ORDERED: Tetracaine HCl/PF 0.5% 4 ML Bottle EYEBOTH ONE (12:16)
--- NOTE | 2021-05-12 12:53 | EDM.PDOC ---
ED HPI GENERAL MEDICAL PROBLEM - General Chief Complaint: Eye Problems Stated Complaint: LFT EYE SCRATCHED Time Seen by Provider: 05/12/21 11:37 Source of Information: Reports: Patient History Limitations: Reports: No Limitations - History of Present Illness INITIAL COMMENTS - FREE TEXT/NARRATIVE: HISTORY AND PHYSICAL: History of present illness: Patient is a 30-year-old female who presents to the ED today with concern of a scratch to her left eye that occurred just prior to arrival to the emergency room. Patient states that she was laying down with her toddler and he went to go get up and flailed his arm and scratched her across the eye with his nail. Patient states she is up-to-date on tetanus. Patient denies any visual changes. Patient states she does not wear glasses or contacts. Patient denies fever, chills, chest pain, shortness of breath, or cough. Denies headache, neck stiff ness, change in vision, syncope, or near syncope. Denies nausea, vomiting, abdominal pain, diarrhea, constipation, or dysuria. Has not noted any blood in urine or stool. Patient has been eating and drinking appropriately. Review of systems: As per history of present illness and below otherwise all systems reviewed and negative. Past medical history: As per history of present illness and as reviewed below otherwise noncontributory. Surgical history: As per history of present illness and as reviewed below otherwise noncontributory. Social history: See social history for further information Family history: As per history of present illness and as reviewed below otherwise noncontributory. Physical exam: General: Patient is alert, oriented, and in no acute distress. Patient sitting comfortably on exam table. Vitals stable and reviewed by me. HEENT: Visual acuity intact. EOMS intact without pain or difficulty. Fluroscene stain performed with evidence of corneal abrasion of the left cornea from the 12 o'clock position to the 3 o'clock position without evidence of globus rupture. Bilateral upper and lower lids everted without sign of foreign body. Negative for corneal opacity, hyphema, or hypopyon. Otherwise, atraumatic, normocephalic, pupils equal and reactive bilaterally, negative for conjunctival pallor or scleral icterus, mucous membranes moist, TMs normal bilaterally, throat clear, neck supple, nontender, trachea midline. No drooling or trismus noted. No meningeal signs. No hot potato voice noted. Lungs: Clear to auscultation, breath sounds equal bilaterally, chest nontender. Heart: S1S2, regular rate and rhythm without overt murmur Abdomen: Soft, nondistended, nontender. Negative for masses or hepatosplenomegaly. Negative for costovertebral tenderness. Pelvis: Stable nontender. Genitourinary: Deferred. Rectal: Deferred. Skin: Intact, warm, dry. No lesions or rashes noted. Extremities: Atraumatic, negative for cords or calf pain. Neurovascular unremarkable. Neuro: Awake, alert, oriented. Cranial nerves II through XII unremarkable. C erebellum unremarkable. Motor and sensory unremarkable throughout. Exam nonfocal. Notes: Sinus symptoms that were prompt return to the ED thoroughly discussed with patient. Discussed importance for follow-up with an spool sorter and her primary care provider. Voices understanding and is agreeable to plan of care. Denies any further questions or concerns at this time. Diagnostics: Fluorescein Wood's lamp Therapeutics: Tetracaine ophthalmic Prescription: Erythromycin ophthalmic Impression: Corneal abrasion, left Plan: 1. Apply medication to affected eye as directed and as discussed. You can alternate ibuprofen and Tylenol as directed and as discussed for pain and discomfort. 2. Follow-up with the spool sorter for formal eye exam as discussed. Also follow-up with your primary care provider as discussed. 3. Do not rub the eye as discussed. Return to the ED as needed and as discussed. Definitive disposition and diagnosis as appropriate pending reevaluation and review of above. left eye Pain Score (Numeric/FACES): 7 - Related Data Allergies Allergy/AdvReac Type Severity Reaction Status Date / Time No Known Allergies Allergy Verified 05/12/21 12:16 Home Meds: Home Meds Erythromycin Base [Erythromycin 0.5% Ophth Oint] 1 applic OP Q4H 5 Days #1 tube 05/12/21 [Rx] Past Medical History - Past Health History Medical/Surgical History: Denies Medical/Surgical History HEENT History: Reports: None Cardiovascular History: Reports: None Respiratory History: Reports: Asthma Other Respiratory History: rarely uses inhaler Gastrointestinal History: Reports: Other (See Below) Other Gastrointestinal History: abdominal pain to RLQ Genitourinary History: Reports: None FLOORMAN History: Reports: Other (See Below) Other FLOORMAN History: section 3 weeks ago. Musculoskeletal History: Reports: None Neurological History: Reports: None Psychiatric History: Reports: None Endocrine/Metabolic History: Reports: Obesity/BMI 30+ Hematologic History: Reports: None - Infectious Disease History Infectious Disease History: Reports: None - Past Surgical History Head Surgeries/Procedures: Reports: None GI Surgical History: Reports: Appendectomy Female Surgical History: Reports: Section Social & Family History - Family History Family Medical History: No Pertinent Family History Endocrine/Metabolic: Reports: Diabetes, Type I - Tobacco Use Tobacco Use Status *Q: Never Tobacco User - Caffeine Use Caffeine Use: Reports: None - Recreational Drug Use Recreational Drug Use: No ED ROS GENERAL - Review of Systems Review Of Systems: Comprehensive ROS is negative, except as noted in HPI. ED EXAM GENERAL W FULL EYE - Physical Exam Exam: See Below (see dictation) Course - Vital Signs Last Recorded V/S: Last Vital Signs Temp 96.8 F L 05/12/21 13:05 Pulse 88 05/12/21 13:05 Resp 17 05/12/21 13:05 BP 124/75 05/12/21 13:05 Pulse Ox 97 05/12/21 13:05 - Orders/Labs/Meds Meds: Medications Discontinued Medications Generic Name Dose Route Start Last Admin Trade Name Freq PRN Reason Stop Dose Admin Tetracaine HCl 2 ml 05/12/21 12:16 05/12/21 12:52 Tetracaine Hcl/Pf 0.5% 4 Ml Bottle EYEBOTH 05/12/21 12:17 2 drop ASDIRECTED ONE Administration Departure - Departure Time of Disposition: 12:52 Disposition: Home, Self-Care 01 Clinical Impression: Corneal abrasion Qualifiers: Encounter type: initial encounter Laterality: left Qualified Code(s): S05.02XA - Injury of conjunctiva and corneal abrasion without foreign body, left eye, initial encounter - Discharge Information Prescriptions: Erythromycin Base [Erythromycin 0.5% Ophth Oint] 1 applic OP Q4H 5 Days #1 tube Instructions: Corneal Abrasion, [id number] Referrals: PCP,None [Primary Care Provider] - Forms: ED Department Discharge Additional Instructions: The following information is given to patients seen in the emergency department who are being discharged to home. This information is to outline your options for follow-up care. We provide all patients seen in our emergency department with a follow-up referral. The need for follow-up, as well as the timing and circumstances, are variable depending upon the specifics of your emergency department visit. If you don't have a primary care physician on staff, we will provide you with a referral. We always advise you to contact your personal physician following an emergency department visit to inform them of the circumstance of the visit and for follow-up with them and/or the need for any referrals to a consulting specialist. The emergency department will also refer you to a specialist when appropriate. This referral assures that you have the opportunity for follow-up care with a specialist. All of these measure are taken in an effort to provide you with o ptimal care, which includes your follow-up. Under all circumstances we always encourage you to contact your private physician who remains a resource for coordinating your care. When calling for follow-up care, please make the office aware that this follow-up is from your recent emergency room visit. If for any reason you are refused follow-up, please contact the [facility] Emergency Department at and asked to speak to the emergency department charge nurse. [facility] [address] [place] [address] [place] [address] 1. Apply medication to affected eye as directed and as discussed. You can alternate ibuprofen and Tylenol as directed and as discussed for pain and discomfort. 2. Follow-up with the spool sorter for formal eye exam as discussed. Also follow-up with your primary care provider as discussed. 3. Do not rub the eye as discussed. Return to the ED as needed and as discussed. Sepsis Event Note (ED) - Evaluation Sepsis Screening Result: No Definite Risk - Focused Exam Vital Signs: Vital Signs Temp Pulse Resp BP Pulse Ox 05/12/21 13:05 96.8 F L 88 17 124/75 97 05/12/21 12:14 96.4 F L 83 16 132/83 97
== END 2021-05-12 13:06 | disposition home or self-care (01) ==
LOC: MW.ED 11:36
DX: S05.02XA Injury of conjunctiva and corneal abrasion without foreign body, left eye, initial encounter (principal); E66.9 Obesity, unspecified; Z68.30 Body mass index [BMI] 30.0-30.9, adult; W22.8XXA Striking against or struck by other objects, initial encounter
CPT/HCPCS: 99283

== ENCOUNTER 2021-06-02 17:20 | Emergency (ER) | payer MEDICAID ==
[2021-06-02] MEDS ORDERED: Lidocaine 2% Viscous Solution 15 ML Cup PO ONE (18:48)
[2021-06-02] MEDS ORDERED: Benzocaine 20% Topical Spray UD MUCMEM ONE (18:48)
--- NOTE | 2021-06-02 18:48 | EDM.PDOC ---
ED HPI GENERAL MEDICAL PROBLEM - General Chief Complaint: ENT Problem Stated Complaint: CRACKED TOOTH Time Seen by Provider: 06/02/21 18:21 Source of Information: Reports: Patient History Limitations: Reports: No Limitations - History of Present Illness INITIAL COMMENTS - FREE TEXT/NARRATIVE: HISTORY AND PHYSICAL: History of present illness: Patient is a 30-year-old female who presents emergency room today with concern of a cracked tooth that occurred just prior to arrival to the emergency room. Patient states that she has had issues with the tooth for several years and st ates that she had a filling a while ago that fell out. Patient states that she was eating a waffle cone today when the tooth cracked. And a piece of the tooth fell out. Patient states that she has an appointment with her dentist in 2 weeks. Patient denies any other symptoms or concerns. Patient denies fever, chills, chest pain, shortness of breath, or cough. Denies headache, neck stiff ness, change in vision, syncope, or near syncope. Denies nausea, vomiting, abdominal pain, diarrhea, constipation, or dysuria. Has not noted any blood in urine or stool. Patient has been eating and drinking appropriately. Review of systems: As per history of present illness and below otherwise all systems reviewed and negative. Past medical history: As per history of present illness and as reviewed below otherwise noncontributory. Surgical history: As per history of present illness and as reviewed below otherwise noncontributory. Social history: See social history for further information Family history: As per history of present illness and as reviewed below otherwise noncontributory. Physical exam: General: Patient is alert, oriented, and in no acute distress. Patient sitting comfortably on exam table. Vitals stable and reviewed by me. HEENT: Tooth number 2 is cracked and missing the central tooth with pain to palpation of the tooth. Otherwise, atraumatic, normocephalic, pupils equal and reactive bilaterally, negative for conjunctival pallor or scleral icterus, mucous membranes moist, TMs normal bilaterally, throat clear, neck supple, nontender, trachea midline. No drooling or trismus noted. No meningeal signs. No hot potato voice noted. Lungs: Clear to auscultation, breath sounds equal bilaterally, chest nontender. Heart: S1S2, regular rate and rhythm without overt murmur Abdomen: Soft, nondistended, nontender. Negative for masses or hepatosplenomegaly. Negative for costovertebral tenderness. Pelvis: Stable nontender. Genitourinary: Deferred. Rectal: Deferred. Skin: Intact, warm, dry. No lesions or rashes noted. Extremities: Atraumatic, negative for cords or calf pain. Neurovascular unremarkable. Neuro: Awake, alert, oriented. Cranial nerves II through XII unremarkable. Cerebellum unremarkable. Motor and sensory unremarkable throughout. Exam nonfocal. Notes: Signs and symptoms that were prompt return to the ED thoroughly discussed with patient. Discussed importance for follow-up with a dentist. Voices understanding and is agreeable to plan of care. Denies any further questions or concerns at this time. Diagnostics: None Therapeutics: Dental balls (I did offer to fill the tooth with temporary cement, however patient declines) Prescription: Augmentin Impression: Tooth fracture Plan: 1. Please take medication as prescribed. 2. Tylenol and/or ibuprofen as directed and as needed for pain management. 3. "Tooth Balls" have been given to you; apply along the gumline every 2-3 hours as needed. Do not swallow these; external use only. 4. Follow-up with a dentist for definitive care. Return to the ED as needed and as discussed. Definitive disposition and diagnosis as appropriate pending reevaluation and review of above. upper molar right Pain Score (Numeric/FACES): 7 - Related Data Allergies Allergy/AdvReac Type Severity Reaction Status Date / Time No Known Allergies Allergy Verified 06/02/21 18:22 Home Meds: Home Meds Amoxicillin/Potassium Clav [Augmentin 875-125 Tablet] 1 each PO BID 7 Days #14 tablet 06/02/21 [Rx] Past Medical History - Past Health History Medical/Surgical History: Denies Medical/Surgical History HEENT History: Reports: None Cardiovascular History: Reports: None Respiratory History: Reports: Asthma Other Respiratory History: rarely uses inhaler Gastrointestinal History: Reports: Other (See Below) Other Gastrointestinal History: abdominal pain to RLQ Genitourinary History: Reports: None THEATER MANAGER History: Reports: Other (See Below) Other THEATER MANAGER History: section 3 weeks ago. Musculoskeletal History: Reports: None Neurological History: Reports: None Psychiatric History: Reports: None Endocrine/Metabolic History: Reports: Obesity/BMI 30+ Hematologic History: Reports: None - Infectious Disease History Infectious Disease History: Reports: None - Past Surgical History Head Surgeries/Procedures: Reports: None GI Surgical History: Reports: Appendectomy Female Surgical History: Reports: Section Social & Family History - Family History Family Medical History: No Pertinent Family History Endocrine/Metabolic: Reports: Diabetes, Type I - Tobacco Use Tobacco Use Status *Q: Never Tobacco User - Caffeine Use Caffeine Use: Reports: None - Recreational Drug Use Recreational Drug Use: No ED ROS GENERAL - Review of Systems Review Of Systems: Comprehensive ROS is negative, except as noted in HPI. ED EXAM, GENERAL - Physical Exam Exam: See Below (see dictation) Course - Vital Signs Last Recorded V/S: Last Vital Signs Temp 96.9 F 06/02/21 18:18 Pulse 107 H 06/02/21 18:18 Resp 17 06/02/21 18:18 BP 126/90 06/02/21 18:18 Pulse Ox 95 06/02/21 18:18 - Orders/Labs/Meds Meds: Medications Discontinued Medications Generic Name Dose Route Start Last Admin Trade Name Denisa PRN Reason Stop Dose Admin Benzocaine 2 each 06/02/21 18:48 Benzocaine 20% Topical [place] Ud MUCMEM 06/02/21 18:49 ONETIME ONE Lidocaine HCl 15 ml 06/02/21 18:48 Lidocaine 2% Viscous Solution 15 Ml Cup PO 06/02/21 18:49 ONETIME ONE Departure - Departure Time of Disposition: 18:47 Disposition: Home, Self-Care 01 Clinical Impression: Tooth fracture Qualifiers: Encounter type: initial encounter Fracture type: open Qualified Code(s): S02.5XXB - Fracture of tooth (traumatic), initial encounter for open fracture - Discharge Information Prescriptions: Amoxicillin/Potassium Clav [Augmentin 875-125 Tablet] 1 each PO BID 7 Days #14 tablet Instructions: Tooth Injuries Referrals: PCP,None [Primary Care Provider] - Forms: ED Department Discharge Additional Instructions: The following information is given to patients seen in the emergency department who are being discharged to home. This information is to outline your options for follow-up care. We provide all patients seen in our emergency department with a follow-up referral. The need for follow-up, as well as the timing and circumstances, are variable d epending upon the specifics of your emergency department visit. If you don't have a primary care physician on staff, we will provide you with a referral. We always advise you to contact your personal physician following an emergency department visit to inform them of the circumstance of the visit and for follow-up with them and/or the need for any referrals to a consulting specialist. The emergency department will also refer you to a specialist when appropriate. This referral assures that you have the opportunity for follow-up care with a specialist. All of these measure are taken in an effort to provide you with optimal care, which includes your follow-up. Under all circumstances we always encourage you to contact your private physician who remains a resource for coordinating your care. When calling for follow-up care, please make the office aware that this follow-up is from your recent emergency room visit. If for any reason you are refused follow-up, please contact the [facility] Emergency Department at and asked to speak to the emergency department charge nurse. [facility] [address] [place] [id number] [facility] [address] [place] [id number] 1. Please take medication as prescribed. 2. Tylenol and/or ibuprofen as directed and as needed for pain management. 3. "Tooth Balls" have been given to you; apply along the gumline every 2-3 hours as needed. Do not swallow these; external use only. 4. Follow-up with a dentist for definitive care. Return to the ED as needed and as discussed. Sepsis Event Note (ED) - Evaluation Sepsis Screening Result: No Definite Risk - Focused Exam Vital Signs: Vital Signs Temp Pulse Resp BP Pulse Ox 06/02/21 18:18 96.9 F 107 H 17 126/90 95
== END 2021-06-02 19:11 | disposition home or self-care (01) ==
LOC: MW.ED 17:20
DX: K03.81 Cracked tooth (principal); J45.909 Unspecified asthma, uncomplicated; E66.9 Obesity, unspecified; Z68.41 Body mass index [BMI] 40.0-44.9, adult
CPT/HCPCS: 99283; A9270

== ENCOUNTER 2022-02-23 12:33 | Emergency (ER) | payer BC, MEDICAID ==
[2022-02-23 14:26] LABS: BLOOD UREA NITROGEN,BUN 16 mg/dL (7.0-18.0); CARBON DIOXIDE,CO2 25.8 mmol/L (21.0-32.0); CHLORIDE,CL 101 mmol/L (98-107); GLUCOSE RANDOM 96 mg/dL (74-106); POTASSIUM,K 3.9 mmol/L (3.5-5.1); SODIUM,NA 138 mmol/L (136-145)
[2022-02-23 14:37] LABS: CORONAVIRUS COVID-19 NAA NEGATIVE (NEGATIVE); INFLUENZA A NAA NEGATIVE (NEGATIVE); INFLUENZA B NAA NEGATIVE (NEGATIVE)
[2022-02-23] MEDS ORDERED: Albuterol 8 GM Inhaler INH ONE (14:56)
== END 2022-02-23 15:19 | disposition home or self-care (01) ==
LOC: MW.ED 12:33
DX: J40 Bronchitis, not specified as acute or chronic (principal); E66.9 Obesity, unspecified; Z68.42 Body mass index [BMI] 45.0-49.9, adult; Z20.822 Contact with and (suspected) exposure to COVID-19
CPT/HCPCS: 0240U; 36415; 71045; 80053; 84484; 85025; 99284; A9270; 93010

== ENCOUNTER 2022-12-09 12:23 | Emergency (ER) | payer MEDICAID | END 2022-12-09 13:31 | disposition home or self-care (01) | LOC: MW.ED 12:23 | DX: J02.9 Acute pharyngitis, unspecified (principal); E66.9 Obesity, unspecified; Z68.38 Body mass index [BMI] 38.0-38.9, adult; Z79.899 Other long term (current) drug therapy; Z90.49 Acquired absence of other specified parts of digestive tract; Z72.0 Tobacco use | CPT/HCPCS: 99283 ==

== ENCOUNTER 2025-05-08 13:13 | Emergency (ER) | payer SELFPAY ==
[2025-05-08] MEDS ORDERED: Sodium Chloride 0.9% 10 ML Syringe FLUSH PRN (13:28)
[2025-05-08] MEDS ORDERED: Sodium Chloride 0.9% 2.5 ML Syringe FLUSH PRN (13:28)
[2025-05-08 13:39] LABS: BASOPHILS ABSOLUTE AUTO 0.03 K/uL (0.00-0.20); BASOPHILS PERCENT AUTO 0.4 % (0.0-1.0); EOSINOPHILS ABSOLUTE AUTO 0.23 K/uL (0.00-0.45); EOSINOPHILS PERCENT AUTO 2.8 % (0.0-6.0); IMMATURE GRAN ABSOLUTE AUTO 0.01 K/uL (0.00-0.05); IMMATURE GRAN PERCENT AUTO 0.1 % (0.0-0.4); LYMPHOCYTES ABSOLUTE AUTO 2.98 K/uL (1.00-4.80); LYMPHOCYTES PERCENT AUTO 36.5 % (24.0-44.0); MEAN PLATELET VOLUME 9.7 fL (9.4-12.3); MONOCYTES ABSOLUTE AUTO 0.45 K/uL (0.00-0.80); MONOCYTES PERCENT AUTO 5.5 % (0.0-8.0); NEUTROPHILS ABSOLUTE AUTO 4.47 K/uL (1.80-7.70); NEUTROPHILS PERCENT AUTO 54.7 % (41.0-71.0); NRBC ABSOLUTE 0.00 K/uL (0.00-0.02); NRBC PERCENT 0.0 /100WBC (0.0-0.2); PLATELET COUNT,PLT 289 K/uL (150-400); RED BLOOD CELL COUNT 4.56 M/uL (4.10-5.30); WHITE BLOOD CELL COUNT,WBC 8.17 K/uL (3.9-11.3)
[2025-05-08 13:48] LABS: D-DIMER QUANTITATIVE 0.9 mg/L FEU (0.00-0.50); INR 0.98 (0.86-1.11); PTT,PARTIAL THROMBOPLSTIN TIME 24.6 SEC (23.9-30.7)
[2025-05-08 14:03] LABS: A/G RATIO 1.0 (0.9-1.6); ALANINE AMINOTRANSFERASE,ALT 28.0 IU/L (14-63); ASPARTATE AMNIOTRANSFERASE,AST 19.0 IU/L (15-37); BILIRUBIN TOTAL 0.2 mg/dL (0.2-1.0); BLOOD UREA NITROGEN,BUN 14.0 mg/dL (7.0-18.0); CARBON DIOXIDE,CO2 26.7 mmol/L (21.0-32.0); CHLORIDE,CL 104.0 mmol/L (98-107); CREATININE 1.1 mg/dL (0.6-1.0); EST CRCL DRUG DOSING (CG) 60.74 mL/min; GLUCOSE RANDOM 143.0 mg/dL (74-106); POTASSIUM,K 3.3 mmol/L (3.5-5.1); PRO B-TYPE NATRIUR PEPT,BNPPRO 37.0 pg/mL (0-125); PROTEIN TOTAL,TP 7.3 g/dL (6.4-8.2); SODIUM,NA 141.0 mmol/L (136-145)
[2025-05-08 14:05] LABS: ESTIMATED GFR 68.0 mL/min (>60)
[2025-05-08] MEDS: Potassium Chloride 10% 20 MEQ/15 ML Soln 15 ML UD Cup PO ONE (15:17)
[2025-05-08] MEDS: Ondansetron 4 MG/2 ML SDV IVPUSH ONE (15:18)
[2025-05-08 15:19] LABS: GLUCOSE,URINE NEGATIVE (NEGATIVE); OCCULT BLOOD,URINE MODERATE (NEGATIVE)
[2025-05-08 15:24] LABS: APPEARANCE,URINE HAZY
[2025-05-08 15:28] LABS: AMPHETAMINES SCREEN, URINE NEGATIVE (CUTOFF=500); BUPRENORPHINE SCREEN,URINE NEGATIVE (CUTOFF=10); METHADONE SCREEN, URINE NEGATIVE (CUTOFF=200); METHAMPHETAMINES SCREEN, URINE NEGATIVE (CUTOFF=500); OXYCODONE SCREEN,URINE NEGATIVE (CUT0FF=100); PCP SCREEN,URINE NEGATIVE (CUTOFF=25); THC SCREEN,URINE 20 NG/ML PRESUMPTIVE POSITIVE (CUTOFF=50)
[2025-05-08 15:32] LABS: EPITHELIAL CELLS,URINE FEW (NONE-FEW)
[2025-05-08] MEDS: Iopamidol 755 MG/ML 500 ML Multipack Bottle IVPUSH STA (16:00)
== END 2025-05-08 17:50 | disposition home or self-care (01) ==
LOC: MW.ED 13:13
DX: R07.2 Precordial pain (principal); E87.6 Hypokalemia; F43.9 Reaction to severe stress, unspecified; R79.89 Other specified abnormal findings of blood chemistry; E66.9 Obesity, unspecified; Z90.49 Acquired absence of other specified parts of digestive tract; Z68.42 Body mass index [BMI] 45.0-49.9, adult
CPT/HCPCS: 36415; 71045; 71275; 80053; 80305; 81001; 81025; 83690; 83880; 84484; 85025; 85379; 85610; 85730; 93005; 96374; 96375; 99285; A9270; J2270; J2405; Q9967; 93010; 99284

== ENCOUNTER 2025-09-07 15:45 | Emergency (ER) | payer SELFPAY ==
[2025-09-07] MEDS ORDERED: Sodium Chloride 0.9% 2.5 ML Syringe FLUSH PRN (15:46)
[2025-09-07] MEDS ORDERED: Sodium Chloride 0.9% 10 ML Syringe FLUSH PRN (15:46)
[2025-09-07 16:10] LABS: BASOPHILS ABSOLUTE AUTO 0.04 K/uL (0.00-0.20); BASOPHILS PERCENT AUTO 0.3 % (0.0-1.0); EOSINOPHILS ABSOLUTE AUTO 0.29 K/uL (0.00-0.45); EOSINOPHILS PERCENT AUTO 2.1 % (0.0-6.0); IMMATURE GRAN ABSOLUTE AUTO 0.04 K/uL (0.00-0.05); IMMATURE GRAN PERCENT AUTO 0.3 % (0.0-0.4); LYMPHOCYTES ABSOLUTE AUTO 3.37 K/uL (1.00-4.80); LYMPHOCYTES PERCENT AUTO 23.9 % (24.0-44.0); MEAN PLATELET VOLUME 9.1 fL (9.4-12.3); MONOCYTES ABSOLUTE AUTO 0.81 K/uL (0.00-0.80); MONOCYTES PERCENT AUTO 5.7 % (0.0-8.0); NEUTROPHILS ABSOLUTE AUTO 9.55 K/uL (1.80-7.70); NEUTROPHILS PERCENT AUTO 67.7 % (41.0-71.0); NRBC ABSOLUTE 0.00 K/uL (0.00-0.02); NRBC PERCENT 0.0 /100WBC (0.0-0.2); PLATELET COUNT,PLT 330 K/uL (150-400); RED BLOOD CELL COUNT 4.97 M/uL (4.10-5.30); WHITE BLOOD CELL COUNT,WBC 14.10 K/uL (3.9-11.3)
[2025-09-07] MEDS: droPERidol 2.5 MG/ML SDV IVPUSH ONE (16:41)
[2025-09-07 16:54] LABS: A/G RATIO 0.9 (0.9-1.6); ALANINE AMINOTRANSFERASE,ALT 27.0 IU/L (14-63); ASPARTATE AMNIOTRANSFERASE,AST 23.0 IU/L (15-37); BILIRUBIN TOTAL 0.5 mg/dL (0.2-1.0); BLOOD UREA NITROGEN,BUN 11.0 mg/dL (7.0-18.0); CARBON DIOXIDE,CO2 24.4 mmol/L (21.0-32.0); CHLORIDE,CL 102.0 mmol/L (98-107); CREATININE 0.9 mg/dL (0.6-1.0); EST CRCL DRUG DOSING (CG) 74.23 mL/min; GLUCOSE RANDOM 98.0 mg/dL (74-106); POTASSIUM,K 3.4 mmol/L (3.5-5.1); PROTEIN TOTAL,TP 8.2 g/dL (6.4-8.2); SODIUM,NA 140.0 mmol/L (136-145)
[2025-09-07 16:57] LABS: ESTIMATED GFR 87.0 mL/min (>60)
[2025-09-07] MEDS: Ketorolac 30 MG/ML SDV IVPUSH ONE (17:22)
== END 2025-09-07 18:05 | disposition home or self-care (01) ==
LOC: MW.ED 15:45
DX: A08.4 Viral intestinal infection, unspecified (principal); K83.1 Obstruction of bile duct; R19.7 Diarrhea, unspecified; D72.829 Elevated white blood cell count, unspecified; Z90.49 Acquired absence of other specified parts of digestive tract; E66.9 Obesity, unspecified; Z98.891 History of uterine scar from previous surgery; Z68.42 Body mass index [BMI] 45.0-49.9, adult
CPT/HCPCS: 36415; 76705; 80053; 83690; 84703; 85025; 96361; 96374; 96375; 99284; J1790; J1885; J7030; 99283